=== PATIENT | female | born 1950 | race Caucasian/White ===

== ENCOUNTER 2019-02-10 21:47 | Emergency (ER) | payer MEDICARE, OTHER, SELFPAY ==
--- NOTE | 2019-02-10 22:33 | DI.RAD.S_ITS ---
PROCEDURE: XR CHEST 2V INDICATIONS: cough, short of breath TECHNIQUE: 2 views of the chest were acquired. COMPARISON: None. FINDINGS: Surgical changes and devices: None. Lungs and pleura: Lungs are clear. No pleural effusions or pneumothorax. Mediastinum: Mediastinal contours are normal. Heart size is normal. Bones and chest wall: Age-appropriate bony degenerative changes are seen. No suspicious bony abnormalities. Soft tissues appear unremarkable. IMPRESSION: Unremarkable imaging examination for age. Dictated by: Viktor Peter M.D. on 02/11/2019 at 7:48 Approved by: Viktor Peter M.D. on 02/11/2019 at 7:49
[2019-02-10 22:35] VITALS: BP 136/88; PULSE 103; RESP 18; TEMP 37; O2SAT 92; BMI 30.2
[2019-02-10 23:14] LABS: Influenza A and B by PCR Rapid Negative (Negative)
--- NOTE | 2019-02-11 00:39 | ED.SOB ---
HPI - SOB/Dyspnea General Chief Complaint: Shortness of Breath/Dyspnea Stated Complaint: COUGH SOB FEVER Time Seen by Provider: 02/11/19 00:37 Source: patient Mode of arrival: ambulatory Limitations: no limitations History of Present Illness Patient is a 68-year-old female who presents with cough and increasing shortness of breath. She has a pulse oximeter at home and it was 92 and a heart rate she said ?tachycardic.He has been having nonproductive cough. Worsening shortness of breath with exertion. He is extremely antsy to go home she has been here for 2 hours. She has not had any fever or chills. he has no chest pain she does have coughing spells with deep breathing. MD Complaint: shortness of breath and cough Related Data Home Medications Medication Instructions Recorded Confirmed acetaminophen 02/10/19 Allergies Allergy/AdvReac Type Severity Reaction Status Date / Time No Known Drug Allergies Allergy Verified 02/10/19 22:30 Review of Systems Review of Systems ROS Unobtainable: All systems reviewed & are unremarkable except as noted in HPI and below Constitutional Denies chills, Denies fever(s), Denies lethargy and Denies weakness Eyes Denies change in vision, Denies eye discharge, Denies irritation and Denies loss of vision ENT Ears, Nose, Mouth, and Throat: Denies change in voice, Denies neck pain and Denies sore throat Cardiovascular Denies chest pain, Denies irregular heart rhythm, Denies lightheadedness, Denies palpitations, Reports dyspnea, Reports dyspnea on exertion and Denies orthopnea Respiratory Reports cough, Reports dyspnea and Reports dyspnea on exertion Gastrointestinal Gastrointestinal: Denies abdominal pain, Denies change in bowel habits, Denies diarrhea, Denies nausea and Denies vomiting Genitourinary Denies hematuria, Denies flank pain, Denies urinary incontinence and Denies urinary urgency Musculoskeletal Denies neck pain Integumentary/Breasts Denies pruritus, Denies erythema, Denies rash and Denies wounds Neurologic Denies loss of vision and Denies weakness Endocrine Denies palpitations [facility] Medical History Patient denies significant medical history (Acute) Social History Smoking Status: Never smoker Social History Smoking Status: Never smoker Exam Initial Vital Signs Initial Vital Signs: Vital Signs Temperature 98.6 F 02/10/19 22:35 Pulse Rate 103 H 02/10/19 22:35 Respiratory Rate 18 02/10/19 22:35 Blood Pressure 136/88 02/10/19 22:35 Pulse Oximetry 92 02/10/19 22:35 GENERAL: Well-appearing, well-nourished and in no acute distress. HEENT: Head atraumatic,EOMI, pupils reactive, face symmetric, moist mucous membrane CARDIOVASCULAR: Regular rate and rhythm without murmurs, rubs or gallops. RESPIRATORY: Speaking in full sentences without any difficulty. She does have an obvious cough with deep inspiration. No wheezing rales or rhonchi ABDOMEN: Soft, nontender. Normoactive bowel sounds all 4 quadrants. No guarding or rebound. EXTREMITIES: Normal range of motion, no clubbing or edema. Neurovascularly intact NEUROLOGICAL: Alert and oriented x4.Normal gait and speech. Cranial nerves II through XII grossly intact. SKIN: Warm, dry, no laceration, no petechiae, no rashes or lesions. Course Orders Ordered: ED Orders 02/10/19 22:32 Influenza A and B by PCR Rapid Stat 02/10/19 22:33 XR chest 2V Stat Discontinued Medications Albuterol (Ventolin Hfa Prepack) [facility] Stop: 02/11/19 00:38 Last Admin: 02/11/19 00:51 Dose: 1 box Vital Signs - 8 hr 02/10/19 22:35 Temperature 98.6 F Pulse Rate 103 H Respiratory Rate 18 Blood Pressure 136/88 Pulse Oximetry 92 MDM - SOB/Dyspnea Lab Data Lab Results 02/10/19 Range/Units 22:32 Influenza A & B (PCR) Negative (Negative) Imaging Data Chest x-ray: Attestation: I personally reviewed and interpreted this imaging study as follows: My impression: No acute cardiopulmonary process MDM Narrative Medical decision making narrative: Patient is requesting to leave. She just wanted to results of influenza and x-ray. She does have obvious cough and reactive airway like symptoms. She is given albuterol and spacer Discharge Plan Departure Patient Disposition: Home Clinical Impression: Reactive airway disease Qualifiers: Asthma severity: mild Asthma persistence: intermittent Asthma complication type: uncomplicated Qualified Code(s): J45.20 - Mild intermittent asthma, uncomplicated Discharge Date/Time: 02/11/19 01:07 Interventions: ED Discharge Assessment Last Done: 02/11/19 01:06 Instructions: DI for Acute Bronchitis Activity Restrictions/Additional Instructions: *You have been diagnosed with reactive airway/bronchitis *What to do: At this time there is no indication for any antibiotics. However he may need further workup if your symptoms continue to worsen *Continue to take medications as directed Albuterol 1-2 puffs with spacer every 4 hours if needed for coughing spells or shortness of breath *Follow up with your primary care provider in 2-3 days *Return to ER if you should have increasing shortness of breath, chest pain, passing or any new, worsening or concerning symptoms Prescriptions: No Action acetaminophen 500 mg Tablet RF: 0 Referrals: Luis Ramachandran MD [Physician] -
[2019-02-11] MEDS: ALBUTEROL HFA PREPACK 1 BOX MISC (00:51)
--- NOTE | 2019-02-11 01:06 | PC.NURSE ---
MDI spacer teaching completed by Hollis HWANG
== END 2019-02-11 01:07 | disposition home or self-care (01) ==
PROVIDERS: Emergency Provider Emergency Medicine
DX: J45.20 Mild intermittent asthma, uncomplicated (principal)
CPT/HCPCS: 71046; 87400; 99282; 99283

== ENCOUNTER 2020-06-28 19:27 | Emergency (ER) | payer MEDICARE, OTHER, SELFPAY ==
[2020-06-28] VITALS (11 sets, daily range): BP systolic 117–177; BP diastolic 56–93; PULSE 98–108; RESP 18–28; TEMP 36.7–38.2; O2SAT 95–98; BMI 27.8
--- NOTE | 2020-06-28 19:36 | DI.RAD.S_ITS ---
PROCEDURE: XR TIBIA FIBULA RT 2V INDICATIONS: fall/injury TECHNIQUE: 2 views of the tibia and fibula were acquired. COMPARISON: None. FINDINGS: Bones: Depressed, comminuted lateral tibial plateau fracture. Comminuted fibular head fracture. Soft tissues: No suspicious soft tissue calcifications or masses. IMPRESSION: Lateral tibial plateau fracture and fibular head fracture. Dictated by: Lupe Denney MD, PhD on 06/28/2020 at 20:06 Approved by: Lupe Denney MD, PhD on 06/28/2020 at 20:07
--- NOTE | 2020-06-28 19:43 | ED.FALL ---
HPI - Fall General Chief Complaint: Trauma Stated Complaint: Fall, ladder Time Seen by Provider: 06/28/20 19:35 Source: patient, family and EMS Mode of arrival: EMS Limitations: no limitations History of Present Illness HPI Narrative: Patient brought here by ambulance from home. Fall off a ladder. Hitting her upper outer left leg/knee against a rock. Left ribs hit the ground. No loss of consciousness. Denies any head neck back pain. No abdominal pain no chest pain. Other than the ribs. No pelvis hips pain. Complains of left medial foot pain. Otherwise right lower extremity no complaints. Received total of 20 mg of ketamine by EMS ... 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 History of orthopedic procedures at [facility]. Right lower leg. Shoe sock removed on left side. complaint: fall Related Data Home Medications Medication Instructions Recorded Confirmed No Known Home Medications 06/28/20 06/28/20 Allergies Allergy/AdvReac Type Severity Reaction Status Date / Time No Known Drug Allergies Allergy Verified 02/10/19 22:30 Review of Systems Review of Systems Narrative: GENERAL: Denies chills, fatigue, malaise, fever, sweats. HEENT: dizziness. RESPIRATORY: Denies dyspnea, cough, wheezing, hemoptysis, sputum. CARDIOVASCULAR: Denies chest pain, palpitations, orthopnea, edema, GASTROINTESTINAL: Denies nausea, vomiting, abdominal pain, : Denies incontinence MUSCULOSKELETAL: Complains of joint pain, or bony pain SKIN: No skin injury NEUROLOGIC: Denies weakness, headache, numbness, change in speech, confusion, seizures, incoordination. PSYCHIATRIC: No concerning psychosocial issues. ROS Unobtainable: All systems reviewed & are unremarkable except as noted in HPI and below Patient History Medical History Patient denies significant medical history (Acute) Social History Smoking Status: Never smoker Smoking Status: Never smoker alcohol intake frequency: 0-2 drinks per day Substance Use Type: does not use Exam Narrative Exam Narrative: GENERAL: patient appears stated age. Well-nourished, well-developed patient, in no distress, not toxic, shirt removed HEAD: Atraumatic. Normocephalic. EYES: Pupils equal round and reactive. Extraocular motions intact. No scleral icterus. No injection or drainage. ENT: Nose without bleeding, purulent drainage. Airway patent. NECK: Trachea midline. Non tender no midline tenderness or step-off CARDIOVASCULAR: Regular rate and rhythm without murmurs, gallops, or rubs. Tenderness to the anterior lower left ribs no crepitus, no flail. No bruising RESPIRATORY: Clear to auscultation. Breath sounds equal bilaterally. No wheezes, rales, or rhonchi. GASTROINTESTINAL: Abdomen soft, non-tender, nondistended. EXTREMITIES: Examination left lower extremity nontender pelvis and hip. Limited range of motion at the left knee due to pain. Skin is intact. Strong pedal pulse light touch intact to foot and toes. Mild tenderness to the mid medial foot. BACK: Nontender without deformity or crepitance. No flank tenderness. No midline tenderness or step-off NEURO: AOx4. SKIN: No rash or erythema of visible areas PSYCH: Not anxious, is cooperative Initial Vital Signs Initial Vital Signs: Vital Signs Temperature 100.7 F H 06/28/20 19:30 Pulse Rate 108 H 06/28/20 19:30 Respiratory Rate 28 H 06/28/20 19:30 Blood Pressure 177/93 H 06/28/20 19:30 Pulse Oximetry 98 06/28/20 19:30 Course Course Course Narrative: Patient and understand we need to transfer to [facility] Orders Ordered: ED Orders 06/28/20 19:36 XR tibia fibula LT 2V Stat 06/28/20 19:42 XR chest 1V Stat XR foot LT 2V Stat 06/28/20 19:50 Complete Blood Count AUTO DIFF Stat Comprehensive Metabolic Panel Stat 06/28/20 20:20 COVID19 -ED/INPAT/OR/L&D Stat Discontinued Medications Fentanyl (Sublimaze) 50 mcg IV NOW ONE Stop: 06/28/20 19:43 Last Admin: 06/28/20 19:45 Dose: 50 mcg Documented by: EDENILSON Hydromorphone HCl (Dilaudid) 1 mg IV NOW ONE Stop: 06/28/20 22:27 Last Admin: 06/28/20 22:33 Dose: 1 mg Documented by: HUYEN Hydromorphone HCl (Dilaudid) 1 mg IV NOW ONE Stop: 06/28/20 23:31 Last Admin: 06/29/20 00:09 Dose: 0.5 mg Documented by: HUYEN Lorazepam (Ativan) 0.5 mg IV NOW ONE Stop: 06/29/20 00:23 Last Admin: 06/29/20 00:25 Dose: 0.5 mg Documented by: HUYEN Morphine Sulfate (Morphine) 4 mg IV NOW ONE Stop: 06/28/20 21:01 Last Admin: 06/28/20 21:07 Dose: 4 mg Documented by: HUYEN Ondansetron HCl (Zofran) 4 mg IV NOW ONE Stop: 06/28/20 23:33 Last Admin: 06/28/20 23:50 Dose: 4 mg Documented by: HUYEN Reevaluation(s) Reevaluation #1: Pain control at this time. Patient and understand transfer indication Time: 23:20 Consultations Consultation #1: s/w dr dozier, our ortho...pt needs txr Time: 20:14 Consultation #2: s/w [facility] orthoDECLAN with dr smith, unable to accept patient Time: 22:15 Consultation #3: Spoke with [facility]oped[facility] dr angela, he will see patient in their emergency department, place patient in knee immobilizer Time: 11:17 Vital Signs Vital signs: Vital Signs - 8 hr 06/28/20 19:30 06/28/20 20:12 06/28/20 21:11 Temperature 100.7 F H Pulse Rate 108 H 101 H 108 H Respiratory Rate 28 H 18 Blood Pressure 177/93 H Pulse Oximetry 98 95 96 06/28/20 21:12 06/28/20 21:30 06/28/20 22:00 Temperature Pulse Rate 105 H 99 H Respiratory Rate Blood Pressure 140/71 139/65 129/62 Pulse Oximetry 96 95 95 06/28/20 22:30 06/28/20 23:00 06/28/20 23:24 Temperature Pulse Rate 103 H 98 H Respiratory Rate Blood Pressure 141/70 H 117/56 L Pulse Oximetry 95 95 97 06/28/20 23:30 06/28/20 23:44 06/29/20 00:00 Temperature 98.1 F Pulse Rate Respiratory Rate Blood Pressure 117/57 L 103/56 L Pulse Oximetry 06/29/20 00:07 06/29/20 00:37 Temperature 98.1 F Pulse Rate 100 H 98 H Respiratory Rate 18 Blood Pressure 128/56 L Pulse Oximetry 98 92 MDM - Fall Differential Diagnosis Differential diagnosis: Likely other (Rib fracture/foot fracture/knee fracture) Lab Data Attestation: I reviewed the patient's lab results. Result diagrams: 06/28/20 19:50 06/28/20 19:50 Labs: Lab Results 06/28/20 06/28/20 06/28/20 Range/Units 19:50 19:50 20:20 WBC 10.2 (4.5-11.0) X10^3/uL RBC 4.41 (4.0-5.2) X10^6/uL Hgb 13.1 (12.0-16.0) g/dL Hct 38.0 (36-46) % MCV 86.3 (80-100) fL MCH 29.6 (26-34) PG MCHC 34.3 (30-36) % RDW 13.2 (11.6-14.8) % Plt Count 346 (150-400) X10^3/uL Neut % (Auto) 67.3 (50-75) % Lymph % (Auto) 25.0 (25-40) % [place] % (Auto) 5.9 (3-14) % Eos % (Auto) 1.1 L (2-4) % Baso % (Auto) 0.7 (0-2) % Neut # (Auto) 6800 (2264-5607) /uL Lymph # (Auto) 2500 (7812-1910) /uL [place] # (Auto) 600 (0-900) /uL Eos # (Auto) 100 (0-450) /uL Baso # (Auto) 100 (0-100) /uL Sodium 140 (137-145) mmol/L Potassium 3.7 (3.4-5.1) mmol/L Chloride 103 (98-107) mmol/L Carbon Dioxide 27 (22-32) mmol/L BUN 19 H (7-17) mg/dL Creatinine 1.18 H (0.52-1.04) mg/dL Estimated GFR 45.6 L (>60) mL/min BUN/Creatinine Ratio 16.1 (6-22) Glucose 112 H (80-110) mg/dL Calcium 9.3 (8.4-10.2) mg/dL Total Bilirubin 0.8 (0.2-1.3) mg/dL AST 35 (14-36) IU/L ALT 44 H (<35) IU/L Alkaline Phosphatase 61 (38-126) U/L Total Protein 7.7 (6.3-8.2) g/dL Albumin 4.3 (3.5-5.0) g/dL Globulin 3.4 (1.7-4.1) g/dL Albumin/Globulin Ratio 1.3 (1.0-2.8) COVID-19 PCR Negative (Negative) Imaging Data Chest x-ray: Radiologist's Impression: [address] [address] XRay Report Signed Patient: Duong MartinR#: [id number] : 2Acct:[id number] Age/Sex: 69 / FDate of Service: 06/28/20 Loc: ED Accession Number: [id number] Procedure: XR chest 1V Ordering Provider: Dejon Loyd MD PROCEDURE: XR CHEST 1V INDICATIONS: Fall/pain left side TECHNIQUE: One view of the chest was acquired. COMPARISON: None. FINDINGS: Surgical changes and devices: None. Lungs and pleura: Lungs are clear. No pleural effusions or pneumothorax. Mediastinum: Mediastinal contours appear normal. Heart size is normal. Bones and chest wall: No suspicious bony lesions. Overlying soft tissues appear unremarkable. IMPRESSION: No acute cardiopulmonary disease process. Dictated by: Lupe Denney MD, PhD on 06/28/2020 at 19:55 Approved by: Lupe Denney MD, PhD on 06/28/2020 at 19:55 X-ray left tib-fib: Radiologist's Impression: [address] [address] XRay Report Signed Patient: Duong MartinR#: [id number] : 2Acct:[id number] Age/Sex: 69 / FDate of Service: 06/28/20 Loc: ED Accession Number: [id number] Procedure: XR tibia fibula LT 2V Ordering Provider: Dejon Loyd MD PROCEDURE: XR TIBIA FIBULA RT 2V INDICATIONS: fall/injury TECHNIQUE: 2 views of the tibia and fibula were acquired. COMPARISON: None. FINDINGS: Bones: Depressed, comminuted lateral tibial plateau fracture. Comminuted fibular head fracture. Soft tissues: No suspicious soft tissue calcifications or masses. IMPRESSION: Lateral tibial plateau fracture and fibular head fracture. Dictated by: Lupe Denney MD, PhD on 06/28/2020 at 20:06 Approved by: Lupe Denney MD, PhD on 06/28/2020 at 20:07 X-ray left foot: Radiologist's Impression: [place] [address] XRay Report Signed Patient: Bijal Martin#: [id number] : 2Acct:[id number] Age/Sex: 69 / FDate of Service: 06/28/20 Loc: ED Accession Number: [id number] Procedure: XR foot LT 2V Ordering Provider: Dejon Loyd MD PROCEDURE: XR FOOT LT 2V INDICATIONS: Fall/pain left side TECHNIQUE: 2 views of the foot were acquired. COMPARISON: None. FINDINGS: Bones: No fractures or dislocations. No suspicious bony lesions. Dorsal calcaneal bone spur. Soft tissues: No tibiotalar joint effusion. Achilles tendon appears normal. IMPRESSION: No fracture. No osseous lesion. If symptoms and/or clinical suspicion for pathology persists, further assessment with repeat radiographs (7-10 days) or advanced imaging (e.g. CT, MRI or bone scan) may be helpful. Dictated by: Lupe Denney MD, PhD on 06/28/2020 at 20:05 Approved by: Lupe Denney MD, PhD on 06/28/2020 at 20:06 [facility] Narrative Medical decision making narrative: Will need to transfer patient as requested by Orthopedics. Also we do not have CT scan here. Patient and understand. They agree with transfer Discharge Plan Departure Patient Disposition: [facility] Clinical Impression: Closed fracture of tibial plateau Qualifiers: Encounter type: initial encounter Laterality: left Qualified Code(s): S82.142A - Displaced bicondylar fracture of left tibia, initial encounter for closed fracture Discharge Date/Time: 06/29/20 00:39 Prescriptions: No Action No Known Home Medications RF: 0
[2020-06-28] MEDS: fentaNYL 100 MCG/2 ML INJ 50 MCG IV (19:45)
[2020-06-28 19:58] LABS: Add Manual Diff / Slide Review NO; Basophils Absolute Auto 100 /uL (0-100); Basophils Percent Auto 0.7 % (0-2); Eosinophils Absolute Auto 100 /uL (0-450); Eosinophils Percent Auto 1.1 % (2-4); Hemoglobin 13.1 g/dL (12.0-16.0); Lymphocytes Absolute Auto 2500 /uL (1100-4500); Mean Corpuscular HGB Conc 34.3 % (30-36); Mean Corpuscular Hemoglobin 29.6 PG (26-34); Mean Corpuscular Volume 86.3 fL (80-100); Monocytes Absolute Auto 600 /uL (0-900); Monocytes Percent Auto 5.9 % (3-14); Neutrophils Absolute Auto 6800 /uL (1500-7000); Neutrophils Percent Auto 67.3 % (50-75); Platelet Count 346 X10^3/uL (150-400); Red Blood Cell Count 4.41 X10^6/uL (4.0-5.2); Red Cell Distribution Width 13.2 % (11.6-14.8); White Blood Cell Count 10.2 X10^3/uL (4.5-11.0)
[2020-06-28 20:10] LABS: Alanine Aminotransferase 44 IU/L (<35); Albumin 4.3 g/dL (3.5-5.0); Albumin Globulin Ratio 1.3 (1.0-2.8); Alkaline Phosphatase 61 U/L (38-126); Aspartate Aminotransferase 35 IU/L (14-36); BUN Creatinine Ratio 16.1 (6-22); Bilirubin Total 0.8 mg/dL (0.2-1.3); Blood Urea Nitrogen 19 mg/dL (7-17); Calcium 9.3 mg/dL (8.4-10.2); Carbon Dioxide 27 mmol/L (22-32); Chloride 103 mmol/L (98-107); Estimated Glomerular Filt Rate 45.6 mL/min (>60); Globulin 3.4 g/dL (1.7-4.1); Glucose 112 mg/dL (80-110); HEMOLYSIS < 15 (0-50); Potassium 3.7 mmol/L (3.4-5.1); Sodium 140 mmol/L (137-145); Total Protein 7.7 g/dL (6.3-8.2)
[2020-06-28 20:44] LABS: COVID19 -Nasal RAPID Negative (Negative)
[2020-06-28] MEDS: MORPHINE 4 MG/ML INJ IV (21:07)
[2020-06-28] MEDS: HYDROMORPHONE 1 MG INJ IV (22:33)
[2020-06-28] MEDS: ONDANSETRON 4 MG/2 ML INJ IV (23:50)
[2020-06-29] VITALS: BP 103/56
[2020-06-29 00:07] VITALS: PULSE 100; O2SAT 98
[2020-06-29] MEDS: HYDROMORPHONE 1 MG INJ IV (00:09)
[2020-06-29] MEDS: LORazepam 2 MG/ML INJ 0.5 MG IV (00:25)
--- NOTE | 2020-06-29 00:30 | PC.NURSE ---
Gave patient 0.5 mg dilaudid, Okayd by patient and provider.
[2020-06-29 00:37] VITALS: BP 128/56; PULSE 98; RESP 18; TEMP 36.7; O2SAT 92
== END 2020-06-29 00:39 | disposition short-term general hospital (02) ==
PROVIDERS: Emergency Provider Emergency Medicine
DX: S82.142A Displaced bicondylar fracture of left tibia, initial encounter for closed fracture (principal); W11.XXXA Fall on and from ladder, initial encounter
CPT/HCPCS: 71045; 73590; 73620; 80053; 85025; 87635; 96374; 96375; 96376; 99284; J1170; J2060; J2270; J2405; J3010

== ENCOUNTER → 2020-07-09 19:08 | Outpatient (ROUT) | payer MEDICARE, OTHER, SELFPAY ==
[2020-07-09 19:34] LABS: Add Manual Diff / Slide Review NO; Basophils Absolute Auto 100 /uL (0-100); Basophils Percent Auto 1.2 % (0-2); Eosinophils Absolute Auto 200 /uL (0-450); Eosinophils Percent Auto 2.6 % (2-4); Hematocrit 30.4 % (36-46); Hemoglobin 10.3 g/dL (12.0-16.0); Lymphocytes Absolute Auto 2000 /uL (1100-4500); Lymphocytes Percent Auto 23.1 % (25-40); Mean Corpuscular HGB Conc 33.9 % (30-36); Mean Corpuscular Hemoglobin 29.7 PG (26-34); Mean Corpuscular Volume 87.7 fL (80-100); Monocytes Absolute Auto 500 /uL (0-900); Monocytes Percent Auto 5.4 % (3-14); Neutrophils Absolute Auto 5700 /uL (1500-7000); Neutrophils Percent Auto 67.7 % (50-75); Platelet Count 717 X10^3/uL (150-400); Red Blood Cell Count 3.47 X10^6/uL (4.0-5.2); White Blood Cell Count 8.5 X10^3/uL (4.5-11.0)
== END ==
PROVIDERS: Visit Provider Physician Assistant
DX: D64.9 Anemia, unspecified (principal)
CPT/HCPCS: 85025

== ENCOUNTER → 2020-07-18 15:53 | Outpatient (ROUT) | payer MEDICARE, OTHER, SELFPAY ==
[2020-07-18 17:14] LABS: Add Manual Diff / Slide Review NO; Basophils Absolute Auto 100 /uL (0-100); Basophils Percent Auto 1.2 % (0-2); Eosinophils Absolute Auto 200 /uL (0-450); Eosinophils Percent Auto 2.4 % (2-4); Hematocrit 31.6 % (36-46); Hemoglobin 10.8 g/dL (12.0-16.0); Lymphocytes Absolute Auto 2500 /uL (1100-4500); Lymphocytes Percent Auto 34.3 % (25-40); Mean Corpuscular HGB Conc 34.1 % (30-36); Mean Corpuscular Hemoglobin 29.9 PG (26-34); Mean Corpuscular Volume 87.7 fL (80-100); Monocytes Absolute Auto 500 /uL (0-900); Monocytes Percent Auto 6.9 % (3-14); Neutrophils Absolute Auto 4000 /uL (1500-7000); Neutrophils Percent Auto 55.2 % (50-75); Platelet Count 683 X10^3/uL (150-400); Red Cell Distribution Width 13.8 % (11.6-14.8); White Blood Cell Count 7.2 X10^3/uL (4.5-11.0)
== END ==
PROVIDERS: Visit Provider Physician Assistant
DX: D64.9 Anemia, unspecified (principal)
CPT/HCPCS: 85025

== ENCOUNTER → 2020-08-15 15:15 | Outpatient (ROUT) | payer MEDICARE, OTHER, SELFPAY ==
[2020-08-15 15:36] LABS: Add Manual Diff / Slide Review NO; Basophils Absolute Auto 0 /uL (0-100); Basophils Percent Auto 0.5 % (0-2); Eosinophils Absolute Auto 100 /uL (0-450); Eosinophils Percent Auto 1.1 % (2-4); Hematocrit 37.3 % (36-46); Hemoglobin 12.5 g/dL (12.0-16.0); Lymphocytes Absolute Auto 2100 /uL (1100-4500); Lymphocytes Percent Auto 32.6 % (25-40); Mean Corpuscular HGB Conc 33.4 % (30-36); Mean Corpuscular Hemoglobin 29.2 PG (26-34); Mean Corpuscular Volume 87.5 fL (80-100); Monocytes Absolute Auto 400 /uL (0-900); Monocytes Percent Auto 6.6 % (3-14); Neutrophils Absolute Auto 3800 /uL (1500-7000); Neutrophils Percent Auto 59.2 % (50-75); Platelet Count 396 X10^3/uL (150-400); Red Blood Cell Count 4.27 X10^6/uL (4.0-5.2); Red Cell Distribution Width 13.7 % (11.6-14.8); White Blood Cell Count 6.5 X10^3/uL (4.5-11.0)
[2020-08-15 15:39] LABS: HEMOLYSIS < 15 (0-50); Iron 60 ug/dL (37-170)
[2020-08-15 15:52] LABS: Percent Iron Saturation 19 % (15-50); Total Iron Binding Capacity 318 ug/dL (265-497); Transferrin 250 mg/dL (206-381)
[2020-08-15 16:05] LABS: Alanine Aminotransferase 33 IU/L (<35); Albumin 4.2 g/dL (3.5-5.0); Albumin Globulin Ratio 1.2 (1.0-2.8); Alkaline Phosphatase 76 U/L (38-126); Aspartate Aminotransferase 25 IU/L (14-36); BUN Creatinine Ratio 22.6 (6-22); Bilirubin Total 0.8 mg/dL (0.2-1.3); Blood Urea Nitrogen 19 mg/dL (7-17); Calcium 10.2 mg/dL (8.4-10.2); Carbon Dioxide 27 mmol/L (22-32); Chloride 103 mmol/L (98-107); Cholesterol 233 mg/dL (140-199); Estimated Glomerular Filt Rate > 60.0 mL/min (>60); Globulin 3.4 g/dL (1.7-4.1); Glucose 95 mg/dL (80-110); HDL Cholesterol 52 mg/dL (40-60); HEMOLYSIS < 15 (0-50); LDL Cholesterol Calculated 132 mg/dL (<100); Potassium 4.8 mmol/L (3.4-5.1); Sodium 136 mmol/L (137-145); Total Protein 7.6 g/dL (6.3-8.2); Triglycerides 245 mg/dL (35-150)
[2020-08-15 16:39] LABS: Ferritin 106 ng/mL (11-264)
== END ==
PROVIDERS: Visit Provider Internal Medicine
DX: E78.2 Mixed hyperlipidemia (principal); D64.9 Anemia, unspecified
CPT/HCPCS: 80053; 80061; 82728; 83540; 83550; 85025

== ENCOUNTER → 2020-10-25 09:53 | Outpatient (CLI) | payer MEDICARE, OTHER, SELFPAY ==
--- NOTE | 2020-10-25 | DI.RAD.S_ITS ---
PROCEDURE: XR FOOT LT MIN 3V INDICATIONS: closed bi fracture of lt tibial plateua TECHNIQUE: 3 views of the foot were acquired. COMPARISON: [facility], CR, XR FOOT LT 2V, 06/28/2020, 19:24. FINDINGS: Bones: No fractures or dislocations. No suspicious bony lesions. 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 Mild degenerative osteoarthritis at the 1st interphalangeal joint. Soft tissues: No tibiotalar joint effusion. Achilles tendon appears normal. IMPRESSION: Osteoarthritic change, no trauma found. Please note that if unusual symptoms persist follow-up advanced imaging such as MRI could be obtained for most accurate early detection of a hidden fracture. Dictated by: Varun Douglas M.D. on 10/25/2020 at 11:07 Approved by: Varun Douglas M.D. on 10/25/2020 at 11:08
--- NOTE | 2020-10-25 | DI.RAD.S_ITS ---
PROCEDURE: XR ANKLE LT MIN 3V INDICATIONS: closed bi fracture of lt tibial platea TECHNIQUE: 3 views of the ankle were acquired. COMPARISON: [facility], CR, XR FOOT LT MIN 3V, 10/25/2020, 10:04. [facility], CR, XR FOOT LT 2V, 06/28/2020, 19:24. [facility], CR, XR TIBIA FIBULA LT 2V, 06/28/2020, 19:24. FINDINGS: Bones: No fractures or dislocations. There is a rounded sharp sharply demarcated defect within the medial aspect of the distal tibial diaphysis, at approximately the junction between the middle and lower thirds, not previously present in June of 2020. No similar lucencies are seen above or below or through the lateral cortex. This measures approximately 5 mm in diameter, and could represent sequela of penetrating wound or focal neoplastic penetration and even infection. Ankle mortise is normally aligned. No suspicious bony lesions. Soft tissues: No tibiotalar joint effusion. Achilles tendon appears normal. IMPRESSION: A 5 mm lucent sharply demarcated defect is seen within the cortex of the tibial diaphysis distally, not previously present. As discussed above several etiologies could explain this finding but given the risk of infection or neoplasm as the underlying cause contrast-enhanced MR scanning through this area is recommended. The patient carries a history of prior trauma to the tibial plateau on the left, with plain film imaging that included this portion of the left tibia at time of that trauma. Please correlate clinically to determine whether any prior fixation device had been utilized penetrating the cortex in this area. Dictated by: Varun Douglas M.D. on 10/25/2020 at 11:15 Approved by: Varun Douglas M.D. on 10/25/2020 at 12:47
== END ==
PROVIDERS: PCP Internal Medicine; Referring Provider Orthopaedic Surgery; Visit Provider Orthopaedic Surgery
DX: S82.142A Displaced bicondylar fracture of left tibia, initial encounter for closed fracture (principal)
CPT/HCPCS: 73610; 73630

== ENCOUNTER → 2021-03-18 10:15 | Outpatient (CLI) | payer MEDICARE, OTHER, SELFPAY | PROVIDERS: PCP Internal Medicine; Referring Provider Internal Medicine; Visit Provider Internal Medicine | DX: Z78.0 Asymptomatic menopausal state (principal); M81.0 Age-related osteoporosis without current pathological fracture; Z82.62 Family history of osteoporosis | CPT/HCPCS: 77080 ==

== ENCOUNTER → 2021-08-14 09:11 | Outpatient (CLI) | payer MEDICARE, OTHER, SELFPAY ==
--- NOTE | 2021-08-14 | DI.RAD.S_ITS ---
PROCEDURE: XR HIP W PEL IF DONE RT 2V INDICATIONS: chronic hip pain TECHNIQUE: 2 views of the hip were acquired. COMPARISON: None. FINDINGS: Bones: No fractures or dislocations. No suspicious bony lesions. The visualized pelvic ring appears intact. Mild joint narrowing with periarticular osteophyte formation of the right hip joint. Soft tissues: No suspicious soft tissue calcifications or masses. Midline pelvic surgical clips. IMPRESSION: Mild right hip joint degeneration. Dictated by: Hollis Moseley [facility] Interpreted: Tim Perez MD on 08/14/2021 at 9:36 Transcribed by: TUCKER on 08/14/2021 at 9:36 Approved by: Tim Perez M.D. on 08/14/2021 at 11:08
== END ==
PROVIDERS: PCP Internal Medicine; Referring Provider Internal Medicine; Visit Provider Internal Medicine
DX: M16.11 Unilateral primary osteoarthritis, right hip (principal); M81.0 Age-related osteoporosis without current pathological fracture
CPT/HCPCS: 73502

== ENCOUNTER → 2022-03-09 12:52 | Outpatient (CLI) | payer MEDICARE, OTHER, SELFPAY ==
[2022-03-09 15:21] LABS: Cholesterol 158 mg/dL (140-199); HDL Cholesterol 71 mg/dL (40-60); LDL Cholesterol Calculated 63 mg/dL (<100); Triglycerides 120 mg/dL (35-150)
== END ==
PROVIDERS: PCP Internal Medicine; Referring Provider Internal Medicine; Visit Provider Internal Medicine
DX: E78.2 Mixed hyperlipidemia (principal)
CPT/HCPCS: 36415; 80061

== ENCOUNTER 2022-08-27 11:11 | Emergency (ER) | payer MEDICARE, OTHER, SELFPAY ==
[2022-08-27] VITALS (10 sets, daily range): BP systolic 114–187; BP diastolic 58–82; PULSE 65–93; RESP 18; TEMP 36.7; O2SAT 92–97
--- NOTE | 2022-08-27 11:27 | DI.RAD.S_ITS ---
PROCEDURE: XR ANKLE LT MIN 3V INDICATIONS: L ankle injury after fall TECHNIQUE: 3 views of the ankle were acquired. COMPARISON: [facility], CR, XR ANKLE LT MIN 3V, 10/25/2020, 10:04. FINDINGS: Bones: There is a probably displaced comminuted fracture of the distal fibula, seen just below the level of the syndesmosis. There is also a prominently displaced medial malleolar fracture. On the lateral view, there is believed to be a mildly displaced posterior malleolar fracture, yet this is not well seen. A prominent Achilles insertion enthesophyte can be seen. Soft tissues: Soft tissue swelling is seen. IMPRESSION: Brightly displaced fractures seen of the medial malleolus and the lateral malleolus. Likely posterior malleolar fracture also present. If it would be helpful for clinical management decision making in this patient with this given history, please consider a dedicated ankle CT for further evaluation. Dictated by: Viktor Peter M.D. on 08/27/2022 at 10:53 Approved by: Viktor Peter M.D. on 08/27/2022 at 10:55
--- NOTE | 2022-08-27 11:28 | ED.FALL ---
HPI - Fall General Chief Complaint: Fall Stated Complaint: GLF Time Seen by Provider: 08/27/22 11:24 Source: patient and EMS Mode of arrival: EMS History of Present Illness HPI Narrative: 71-year-old female. Not on anticoagulation. Here for evaluation of a left ankle injury. She was walking. She tripped over to dogs. She twist her left ankle. Has deformity. Is unable to ambulate since then. No other injuries from the event. Not on anticoagulation. Arrived by EMS in a splint. Related Data Home Medications Medication Instructions Recorded Confirmed acetaminophen 500 mg capsule 500 mg PO DAILY PRN 03/09/22 03/09/22 calcium 650 mg-vitamin D3 12.5 1 tab PO DAILY 03/09/22 03/09/22 mcg-vitamin K 40 mcg chewable tablet ibuprofen 200 mg capsule 200 mg PO DAILY PRN 03/09/22 03/09/22 rosuvastatin 10 mg tablet 10 mg PO DAILY 03/09/22 03/09/22 zoledronic acid 5 mg/100 mL in 1 ea IV .Yearly 03/09/22 03/09/22 mannitol 5 %-water intravenous piggybck (Reclast) Previous Rx's Medication Instructions Recorded apixaban 5 mg tablet (Eliquis) 5 mg PO DIRECTED #70 tabs 08/27/22 hydrocodone 5 mg-acetaminophen 325 1 tab PO Q4-6H PRN pain #20 tabs 08/27/22 mg tablet ondansetron 4 mg disintegrating 4 mg PO Q6H PRN nausea and 08/27/22 tablet vomiting #14 tabs Allergies Allergy/AdvReac Type Severity Reaction Status Date / Time No Known Drug Allergies Allergy Verified 08/27/22 11:27 Review of Systems Constitutional Constitutional: Reports system reviewed and no additional complaints, except as documented Musculoskeletal Musculoskeletal: Reports system reviewed and no additional complaints, except as documented Integumentary/Breasts Skin/Breast: Reports system reviewed and no additional complaints, except as documented Neurologic Neurologic: Reports system reviewed and no additional complaints, except as documented Hematologic/Lymphatic On Anticoagulants: No Patient History Medical History Age-related osteoporosis without current pathological fracture Deep vein thrombosis (~06/2019) Fractures Gastric reflux Mixed hyperlipidemia Obesity (BMI 30.0-34.9) Patient denies significant medical history Primary osteoarthritis involving multiple joints Pulmonary embolism (~06/2019) Surgical History Anesthesia History of appendectomy History of bilateral breast reduction surgery History of total abdominal hysterectomy and bilateral salpingo-oophorectomy Tibia/fibula fracture Tibial plateau fracture, left Family History Father Diabetes mellitus History of heart disease Hypertension Social History Smoking Status: Former smoker Smoking Status: Former smoker alcohol intake frequency: 0-2 drinks per day Alcohol type: wine Substance Use Type: does not use Exam Initial Vital Signs Initial Vital Signs: Vital Signs Temperature 98.1 F 08/27/22 11:21 Pulse Rate 82 08/27/22 11:21 Respiratory Rate 18 08/27/22 11:21 Blood Pressure 158/76 H 08/27/22 11:21 Pulse Oximetry 92 08/27/22 11:21 Oxygen Delivery Method 08/27/22 11:21 Cardio Pulses: dorsalis pedis present on the left Skin General: no rashes or lesions noted Neuro General: patient alert and patient awake Sensory Exam: no sensory deficits noted Extrem Other: No left knee tenderness. Has swelling and deformity to left ankle. Right lower extremity bilateral upper extremities unremarkable. Psych Appearance: grossly normal and well kempt Procedures Orthopedic Fracture Reduction Fracture #1: Time Out Performed: Yes Side: left Fracture Reduction Location: tibia and fibula Technique: direct manipulation Post Reduction X-rays Demonstrate: acceptable reduction Post-reduction neuro exam: intact Post-reduction vascular exam: intact Splint Applied: Yes Patient Tolerated Procedure: Well Orthopedic Splinting/Casting Injury #1: Side: left Lower Extremity Injury Location: ankle Lower Extremity Immobilizer: posterior splint and stirrup splint Post splinting neuro exam: intact Post splinting vascular exam: intact Placed by: Provider Course Orders Ordered: ED Orders 08/27/22 11:27 XR ankle LT min 3V Stat 08/27/22 13:06 XR ankle LT min 3V Stat Discontinued Medications Hydromorphone HCl (Hydromorphone 1 Mg Inj) 1 mg IV NOW ONE Stop: 08/27/22 11:47 Last Admin: 08/27/22 11:55 Dose: 1 mg Documented By: AT Ondansetron HCl (Ondansetron 4 Mg/2 Ml Inj) 4 mg IV NOW ONE Stop: 08/27/22 13:25 Last Admin: 08/27/22 13:29 Dose: 4 mg Documented By: TC Vital Signs Vital signs: Vital Signs - 8 hr 08/27/22 11:21 08/27/22 11:27 08/27/22 11:30 Temperature 98.1 F Pulse Rate 82 85 Respiratory Rate 18 Blood Pressure 158/76 H 145/72 H Pulse Oximetry 92 95 Oxygen Delivery Method Room Air 08/27/22 11:30 08/27/22 12:00 08/27/22 12:00 Temperature Pulse Rate 74 86 Respiratory Rate Blood Pressure 164/77 H Pulse Oximetry 93 94 Oxygen Delivery Method Room Air 08/27/22 12:30 08/27/22 12:30 08/27/22 13:00 Temperature Pulse Rate 65 Respiratory Rate Blood Pressure 129/60 187/82 H Pulse Oximetry 94 Oxygen Delivery Method 08/27/22 13:00 08/27/22 13:23 08/27/22 13:31 Temperature Pulse Rate 93 H 88 Respiratory Rate Blood Pressure 122/62 Pulse Oximetry 96 97 Oxygen Delivery Method Room Air MDM - Fall Imaging Data Extremity x-ray #1: Radiologist's Impression: [address] [address] XRay Report Signed Patient: Guanakito Rosas MR#: [id number] : 1950 Acct:[id number] Age/Sex: 71 / F Date of Service: 08/27/22 Loc: ED Accession Number: [id number] ?? Procedure: XR ankle LT min 3V Ordering Provider: Param Cardenas D.O. PROCEDURE:? XR ANKLE LT MIN 3V ? INDICATIONS:? L ankle injury after fall ? TECHNIQUE:? 3 views of the ankle were acquired.? ? COMPARISON:? [facility], [place], XR ANKLE LT MIN 3V, 10/25/2020, 10:04. ? FINDINGS:? ? Bones:? There is a probably displaced comminuted fracture of the distal fibula, seen just below the level of the syndesmosis.? There is also a prominently displaced medial malleolar fracture.? On the lateral view, there is believed to be a mildly displaced posterior malleolar fracture, yet this is not well seen. ? A prominent Achilles insertion enthesophyte can be seen. ? Soft tissues:? Soft tissue swelling is seen. ? ? IMPRESSION:? Brightly displaced fractures seen of the medial malleolus and the lateral malleolus. ? Likely posterior malleolar fracture also present. ? If it would be helpful for clinical management decision making in this patient with this given history, please consider a dedicated ankle CT for further evaluation. ? ? ? Dictated by: Viktor Peter M.D. on 08/27/2022 at 10:53 ? ? Approved by: Viktor Peter M.D. on 08/27/2022 at 10:55?? Extremity x-ray #2: Radiologist's Impression: [address] [address] XRay Report Signed Patient: Guanakito Lunsford MR#: [id number] : 1950 Acct:[id number] Age/Sex: 71 / F Date of Service: 08/27/22 Loc: ED Accession Number: [id number] ?? Procedure: XR ankle LT min 3V Ordering Provider: Param Cardenas D.O. responding to primary ROCEDURE:? XR ANKLE LT MIN 3V ? INDICATIONS:? post reduction in splint ? TECHNIQUE:? 3 views of the ankle were acquired.? ? COMPARISON:? [facility], , XR ANKLE LT MIN 3V, 08/27/2022, 11:25. ? FINDINGS:? ? Bones:? Trimalleolar fracture again seen with improved alignment now splinted. ? Soft tissues:? No tibiotalar joint effusion.? Achilles tendon appears normal.? ? ? IMPRESSION:? Splinted trimalleolar fracture. ? Dictated by: Antoine Peralta M.D. on 08/27/2022 at 13:28 ? ? Approved by: Antoine Peralta M.D. on 08/27/2022 at 13:29?? MDM Narrative Medical decision making narrative: Mechanical fall. Neurovascularly intact. No breaks in the skin. Fracture reduced and splint applied. Will discharge home with instructions for the splint. They state that they have crutches at home. They have an orthopedic surgeon that they would prefer to follow-up with. Had a long discussion with the patient and her . She had a provoked DVT in her leg resulting in a pulmonary embolism after having surgery for tibial plateau fracture. That was 2 years ago. She is not currently on anticoagulation. She had no subsequent workup. Was on blood thinners for short period of time and then was discontinued. She was concerned given the injury today that this would happen again. Inform them that if that was a provoked DVT that led to the prior issue which sounds like it was that she would not require anticoagulation today. They were uneasy with that assessment. We discussed the risks and benefits of starting her on anticoagulation. She understands these she is been on these before. She understands that she most likely does not need to be on this medication. They would still like to start on anticoagulation. Was sent to the pharmacy of their choice. They will follow-up with orthopedics. They were given return precautions. They expressed understanding and agreement. Discharge Plan Departure Patient Disposition: Home Clinical Impression: Ankle fracture, left Instructions: How to Use Crutches, DI for Ankle Fracture, How to Take Care of Your Splint Activity Restrictions/Additional Instructions: The splint that was placed today needs to be treated like a cast. You need to keep it on and keep it clean and keep it dry. Do not walk on your left leg. Use the crutches. Try to keep your leg elevated. A prescription for pain medication and nausea medicine [facility]. After discussion of the risks and benefits you opted to be started on anticoagulation. A medication called Eliquis/apixaban was also sent to [facility]. You do need follow-up with an orthopedic surgeon. You can contact the orthopedic surgeon at the number provided below. Return to the emergency department for any new symptoms. Prescriptions: New hydrocodone-acetaminophen 5-325 mg tablet 1 tab PO Q4-6H PRN (Reason: pain) Qty: 20 0RF ondansetron 4 mg tablet,disintegrating 4 mg PO Q6H PRN (Reason: nausea and vomiting) Qty: 14 0RF Eliquis 5 mg tablet 5 mg PO DIRECTED Qty: 70 0RF Rx Instructions: 2T PO BID for 7D then 1T PO BID afterward No Action rosuvastatin 10 mg tablet 10 mg PO DAILY zoledronic [id number] [Reclast] 5 mg/100 mL piggyback 1 ea IV .Yearly acetaminophen 500 mg capsule 500 mg PO DAILY PRN ibuprofen 200 mg capsule 200 mg PO DAILY PRN calcium-vitamin D3-vitamin K 650 mg-12.5 mcg-40 mcg tablet,chewable 1 tab PO DAILY Referrals: Shefali Laboy MD [Physician] - Luis Ramachandran MD [Primary Care Provider] -
[2022-08-27] MEDS: HYDROMORPHONE 1 MG INJ IV (11:55)
--- NOTE | 2022-08-27 13:06 | DI.RAD.S_ITS ---
P responding to primary ROCEDURE: XR ANKLE LT MIN 3V INDICATIONS: post reduction in splint TECHNIQUE: 3 views of the ankle were acquired. COMPARISON: [facility], CR, XR ANKLE LT MIN 3V, 08/27/2022, 11:25. FINDINGS: Bones: Trimalleolar fracture again seen with improved alignment now splinted. Soft tissues: No tibiotalar joint effusion. Achilles tendon appears normal. IMPRESSION: Splinted trimalleolar fracture. Dictated by: Antoine Peralta M.D. on 08/27/2022 at 13:28 Approved by: Antoine Peralta M.D. on 08/27/2022 at 13:29
[2022-08-27] MEDS: ONDANSETRON 4 MG/2 ML INJ IV (13:29)
--- NOTE | 2022-08-27 14:05 | PC.NURSE ---
Pt has crutches at home, states she knows how to use them.
== END 2022-08-27 14:23 | disposition home or self-care (01) ==
PROVIDERS: Emergency Provider Emergency Medicine; PCP Internal Medicine
DX: S82.892A Other fracture of left lower leg, initial encounter for closed fracture (principal); X50.1XXA Overexertion from prolonged static or awkward postures, initial encounter
CPT/HCPCS: 27752; 73610; 96374; 96375; 99284; J1170; J2405

== ENCOUNTER 2022-09-30 10:52 | Emergency (ER) | payer MEDICARE, OTHER, SELFPAY ==
[2022-09-30] VITALS (16 sets, daily range): BP systolic 100–162; BP diastolic 64–89; PULSE 88–115; RESP 15–20; TEMP 37; O2SAT 93–100; BMI 30.2
--- NOTE | 2022-09-30 11:04 | DI.RAD.S_ITS ---
PROCEDURE: XR CHEST 1V INDICATIONS: suspected sepsis TECHNIQUE: One view of the chest was acquired. COMPARISON: [facility], CR, XR CHEST 1V, 06/28/2020, 19:24. FINDINGS: Surgical changes and devices: None. Lungs and pleura: Lungs are clear. No pleural effusions or pneumothorax. Mediastinum: Mediastinal contours appear normal. Heart size is normal. Bones and chest wall: No suspicious bony lesions. Overlying soft tissues appear unremarkable. IMPRESSION: No acute process. Dictated by: Jake Gilman M.D. on 09/30/2022 at 11:41 Approved by: Jake Gilman M.D. on 09/30/2022 at 11:41
--- NOTE | 2022-09-30 11:44 | ED.ABDPAIN ---
HPI - Abdominal Pain General Chief Complaint: Abdominal Pain Stated Complaint: abd pain,fever x4 days Time Seen by Provider: 09/30/22 11:26 Source: patient Mode of arrival: Ambulatory History of Present Illness HPI narrative: Patient is a 71-year-old female history of DVT/PE with recent ankle fracture on Eliquis presenting today with abdominal pain. She says 3 days ago she had fever body aches she had some loose stool generally did not feel well she said those symptoms actually improved she has been afebrile the diarrhea has improved. She has had some decreased appetite. However she started having some lower abdominal discomfort worse with movement. Difficult to tell if she is had painful or frequent urination. She says the diarrhea has stopped. However it is her lower abdomen is quite tender. She denies any bloody stools. She does not have any chest pain or shortness of breath. She denies any flank pain or radiation. She is not been nauseated no vomiting. Related Data Home Medications Medication Instructions Recorded Confirmed acetaminophen 500 mg capsule 500 mg PO DAILY PRN 03/09/22 03/09/22 calcium 650 mg-vitamin D3 12.5 1 tab PO DAILY 03/09/22 03/09/22 mcg-vitamin K 40 mcg chewable tablet ibuprofen 200 mg capsule 200 mg PO DAILY PRN 03/09/22 03/09/22 zoledronic acid 5 mg/100 mL in 1 ea IV .Yearly 03/09/22 03/09/22 mannitol 5 %-water intravenous piggybck (Reclast) Previous Rx's Medication Instructions Recorded apixaban 5 mg tablet (Eliquis) 5 mg PO DIRECTED #70 tabs 08/27/22 ondansetron 4 mg disintegrating 4 mg PO Q6H PRN nausea and 08/27/22 tablet vomiting #14 tabs hydrocodone 5 mg-acetaminophen 325 1 tab PO Q4-6H PRN pain #20 tabs 08/31/22 mg tablet rosuvastatin 10 mg tablet 10 mg PO DAILY #90 tabs 09/10/22 ciprofloxacin HCl 500 mg tablet 500 mg PO BID #14 tabs 09/30/22 (Cipro) metronidazole 500 mg tablet 500 mg PO Q8H 7 days #21 tabs 09/30/22 Allergies Allergy/AdvReac Type Severity Reaction Status Date / Time No Known Drug Allergies Allergy Verified 09/30/22 11:00 Review of Systems Review of Systems ROS Unobtainable: All systems reviewed & are unremarkable except as noted in HPI and below Patient History Medical History Age-related osteoporosis without current pathological fracture Deep vein thrombosis (~06/2019) Fractures Gastric reflux Mixed hyperlipidemia Obesity (BMI 30.0-34.9) Patient denies significant medical history Primary osteoarthritis involving multiple joints Pulmonary embolism (~06/2019) Surgical History Anesthesia History of appendectomy History of bilateral breast reduction surgery History of total abdominal hysterectomy and bilateral salpingo-oophorectomy Tibia/fibula fracture Tibial plateau fracture, left Family History Father Diabetes mellitus History of heart disease Hypertension Social History Smoking Status: Former smoker Smoking Status: Former smoker alcohol intake frequency: holidays/special occasions only Alcohol type: wine Substance Use Type: marijuana Exam Initial Vital Signs Initial Vital Signs: Vital Signs Temperature 98.6 F 09/30/22 10:58 Pulse Rate 113 H 09/30/22 10:58 Respiratory Rate 15 09/30/22 10:58 Blood Pressure 131/83 09/30/22 10:58 Pulse Oximetry 97 09/30/22 10:58 Oxygen Delivery Method 09/30/22 10:58 GENERAL: Alert pleasant 71-year-old female and in no acute distress. HEENT: Head atraumatic,EOMI, pupils reactive, face symmetric, moist mucous membranes CARDIOVASCULAR: Regular rate and rhythm without murmurs, rubs or gallops. RESPIRATORY: Breath sounds equal bilaterally, no wheezes rales or rhonchi. ABDOMEN: Soft, mildly tender suprapubic and lower abdomen no guarding no rebound normal bowel sounds : No CVA tenderness EXTREMITIES: Normal range of motion, no clubbing or edema. Neurovascularly intact NEUROLOGICAL: Alert and oriented x4.Normal gait and speech. SKIN: Warm, dry, no laceration, no petechiae, no rashes or lesions. Course Orders Ordered: ED Orders 09/30/22 11:04 XR chest 1V Stat RT Consult Eval and Treat NOW 09/30/22 11:15 Comprehensive Metabolic Panel Stat Lactate (Lactic Acid) Stat Lipase Stat Partial Thromboplastin Time Stat Procalcitonin Stat Prothrombin Time INR Stat 09/30/22 11:35 Urine Culture Stat Urine Microscopic Stat 09/30/22 11:45 CT abdomen pelvis w con Stat 09/30/22 11:51 EKG-12 Lead Stat 09/30/22 12:51 Blood Culture Stat Complete Blood Count AUTO DIFF Stat 09/30/22 13:13 US abdomen limited Stat 09/30/22 13:56 Covid-19 + FLU A/B + RSV - PCR Stat 09/30/22 15:05 CMP [Comprehensive Metabolic Panel] Stat Discontinued Medications Sodium Chloride (Normal Saline 0.9%) 1,000 mls @ 1,000 mls/hr IV BOLUS ONE Stop: 09/30/22 12:03 Last Infusion: 09/30/22 13:10 Dose: 0 mls/hr Documented By: Admin: 09/30/22 11:54 Dose: 1,000 mls/hr Documented By: MASON Sodium Chloride (Normal Saline 0.9%) 1,000 mls @ 1,000 mls/hr IV BOLUS ONE Stop: 09/30/22 12:44 Last Admin: 09/30/22 14:16 Dose: Not Given Documented By: ASHKAN Vital Signs Vital signs: Vital Signs - 8 hr 09/30/22 12:26 09/30/22 12:26 09/30/22 12:30 Pulse Rate 97 H Blood Pressure 137/80 123/70 Pulse Oximetry 100 Oxygen Delivery Method Room Air 09/30/22 12:30 09/30/22 13:00 09/30/22 13:30 Pulse Rate 94 H 92 H 89 Blood Pressure Pulse Oximetry 98 98 97 Oxygen Delivery Method Room Air 09/30/22 14:00 09/30/22 14:03 09/30/22 14:03 Pulse Rate 92 H 90 Blood Pressure 135/89 Pulse Oximetry 98 98 Oxygen Delivery Method 09/30/22 14:30 09/30/22 14:30 09/30/22 15:00 Pulse Rate 88 Blood Pressure 123/75 134/76 Pulse Oximetry 98 Oxygen Delivery Method 09/30/22 15:00 09/30/22 15:30 09/30/22 16:00 Pulse Rate 91 H 92 H 92 H Blood Pressure Pulse Oximetry 95 97 Oxygen Delivery Method 09/30/22 16:06 12/28/22 16:06 09/30/22 16:30 Pulse Rate 92 H Blood Pressure 149/67 H 162/83 H Pulse Oximetry 99 Oxygen Delivery Method 09/30/22 16:30 Pulse Rate 88 Blood Pressure Pulse Oximetry 95 Oxygen Delivery Method MDM - Abdominal Pain Lab Data Result diagrams: 09/30/22 12:51 09/30/22 15:05 Labs: Lab Results 09/30/22 09/30/22 09/30/22 Range/Units 11:15 11:15 11:15 WBC (4.5-11.0) X10^3/uL RBC (4.0-5.2) X10^6/uL Hgb (12.0-16.0) g/dL Hct (36-46) % MCV (80-100) fL MCH (26-34) PG MCHC (30-36) % RDW (11.6-14.8) % Plt Count (150-400) X10^3/uL Neut % (Auto) (50-75) % Lymph % (Auto) (25-40) % Camb[place] % (Auto) (3-14) % Eos % (Auto) (2-4) % Baso % (Auto) (0-2) % Neut # (Auto) (3864-6636) /uL Lymph # (Auto) (2235-5333) /uL Cambria # (Auto) (0-900) /uL Eos # (Auto) (0-450) /uL Baso # (Auto) (0-100) /uL PT 12.5 (10.1-12.7) SECONDS INR 1.1 (0.9-1.3) APTT 35 (26-36) SECONDS Sodium 140 (137-145) mmol/L Potassium 3.6 (3.4-5.1) mmol/L Chloride 102 (98-107) mmol/L Carbon Dioxide 24 (22-32) mmol/L BUN 16 (7-17) mg/dL Creatinine 0.86 (0.52-1.04) mg/dL Estimated GFR > 60 (>60) mL/min BUN/Creatinine Ratio 18.6 (6-22) Glucose 129 H (80-110) mg/dL Lactate 1.3 (0.7-2.1) mmol/L Calcium 9.4 (8.4-10.2) mg/dL Total Bilirubin 1.5 H (0.2-1.3) mg/dL AST 126 H (14-36) IU/L ALT 317 H (<35) IU/L Alkaline Phosphatase 150 H (38-126) U/L Total Protein 8.6 H (6.3-8.2) g/dL Albumin 4.4 (3.5-5.0) g/dL Globulin 4.2 H (1.7-4.1) g/dL Albumin/Globulin Ratio 1.0 (1.0-2.8) Lipase 157 (23-300) U/L Procalcitonin 0.11 (<0.5) ng/mL Urine RBC (0-5/HPF) Urine WBC (0-5/HPF) Amorphous Sediment Urine Bacteria (None) Urine Mucus (Negative) Ur Culture Indicated? SARS-CoV-2 (PCR) (Negative) Influenza A (RT-PCR) (NEGATIVE) Influenza B (RT-PCR) (NEGATIVE) RSV (PCR) (Negative) 09/30/22 09/30/22 09/30/22 Range/Units 11:35 12:51 13:56 WBC 6.4 (4.5-11.0) X10^3/uL RBC 3.83 L (4.0-5.2) X10^6/uL Hgb 11.0 L (12.0-16.0) g/dL Hct 33.2 L (36-46) % MCV 86.8 (80-100) fL MCH 28.9 (26-34) PG MCHC 33.3 (30-36) % RDW 14.0 (11.6-14.8) % Plt Count 274 (150-400) X10^3/uL Neut % (Auto) 54.3 (50-75) % Lymph % (Auto) 25.8 (25-40) % Cambria % (Auto) 10.2 (3-14) % Eos % (Auto) 8.9 H (2-4) % Baso % (Auto) 0.8 (0-2) % Neut # (Auto) 3500 (2334-3510) /uL Lymph # (Auto) 1600 (4676-4439) /uL Cambria # (Auto) 700 (0-900) /uL Eos # (Auto) 600 H (0-450) /uL Baso # (Auto) 100 (0-100) /uL PT (10.1-12.7) SECONDS INR (0.9-1.3) APTT (26-36) SECONDS Sodium (137-145) mmol/L Potassium (3.4-5.1) mmol/L Chloride (98-107) mmol/L Carbon Dioxide (22-32) mmol/L BUN (7-17) mg/dL Creatinine (0.52-1.04) mg/dL Estimated GFR (>60) mL/min BUN/Creatinine Ratio (6-22) Glucose (80-110) mg/dL Lactate (0.7-2.1) mmol/L Calcium (8.4-10.2) mg/dL Total Bilirubin (0.2-1.3) mg/dL AST (14-36) IU/L ALT (<35) IU/L Alkaline Phosphatase (38-126) U/L Total Protein (6.3-8.2) g/dL Albumin (3.5-5.0) g/dL Globulin (1.7-4.1) g/dL Albumin/Globulin Ratio (1.0-2.8) Lipase (23-300) U/L Procalcitonin (<0.5) ng/mL Urine RBC 0-1/hpf (0-5/HPF) Urine WBC 1-5/hpf (0-5/HPF) Amorphous Sediment 1+ Urine Bacteria None seen (None) Urine Mucus 3+ H (Negative) Ur Culture Indicated? Specimen cultured SARS-CoV-2 (PCR) Negative (Negative) Influenza A (RT-PCR) Flu a negative (NEGATIVE) Influenza B (RT-PCR) Flu b negative (NEGATIVE) RSV (PCR) Negative (Negative) 09/30/22 Range/Units 15:05 WBC (4.5-11.0) X10^3/uL RBC (4.0-5.2) X10^6/uL Hgb (12.0-16.0) g/dL Hct (36-46) % MCV (80-100) fL MCH (26-34) PG MCHC (30-36) % RDW (11.6-14.8) % Plt Count (150-400) X10^3/uL Neut % (Auto) (50-75) % Lymph % (Auto) (25-40) % Cambria % (Auto) (3-14) % Eos % (Auto) (2-4) % Baso % (Auto) (0-2) % Neut # (Auto) (0757-0550) /uL Lymph # (Auto) (7746-9835) /uL Cambria # (Auto) (0-900) /uL Eos # (Auto) (0-450) /uL Baso # (Auto) (0-100) /uL PT (10.1-12.7) SECONDS INR (0.9-1.3) APTT (26-36) SECONDS Sodium 139 (137-145) mmol/L Potassium 3.7 (3.4-5.1) mmol/L Chloride 105 (98-107) mmol/L Carbon Dioxide 25 (22-32) mmol/L BUN 14 (7-17) mg/dL Creatinine 0.80 (0.52-1.04) mg/dL Estimated GFR > 60 (>60) mL/min BUN/Creatinine Ratio 17.5 (6-22) Glucose 97 (80-110) mg/dL Lactate (0.7-2.1) mmol/L Calcium 8.4 (8.4-10.2) mg/dL Total Bilirubin 1.1 (0.2-1.3) mg/dL AST 104 H (14-36) IU/L ALT 264 H (<35) IU/L Alkaline Phosphatase 129 H (38-126) U/L Total Protein 7.1 (6.3-8.2) g/dL Albumin 3.7 (3.5-5.0) g/dL Globulin 3.4 (1.7-4.1) g/dL Albumin/Globulin Ratio 1.1 (1.0-2.8) Lipase (23-300) U/L Procalcitonin (<0.5) ng/mL Urine RBC (0-5/HPF) Urine WBC (0-5/HPF) Amorphous Sediment Urine Bacteria (None) Urine Mucus (Negative) Ur Culture Indicated? SARS-CoV-2 (PCR) (Negative) Influenza A (RT-PCR) (NEGATIVE) Influenza B (RT-PCR) (NEGATIVE) RSV (PCR) (Negative) Point of care testing: Urine Dip Bedside Urine Glucose Negative Bedside Urine Bilirubin - Negative Bedside Urine Ketone - Negative Urine Specific Florien 1.025 Bedside Urine Occult Blood + Bedside Urine pH 6.0 Bedside Urine Protein + 30 Bedside Urine Urobilinogen +/- 1mg Bedside Urine Nitrite - Negative Bedside Urine Leukocytes - Negative Esterase Imaging Data CT scan - abdomen/pelvis: Radiologist's Impression: Signed Patient: Guanakito Lunsford MR#: [id number] : 1950 Acct:[id number] Age/Sex: 71 / F Date of Service: 09/30/22 Loc: ED Accession Number: [id number] ?? Procedure: CT abdomen pelvis w con Ordering Provider: Mikki Arias D.O. PROCEDURE:? CT ABDOMEN PELVIS W CON ? INDICATIONS:? lower ab pain ? TECHNIQUE:? After the administration of intravenous contrast, axial sections acquired from the lung bases to the pubic symphysis.? Coronal and sagittal reformats were performed.? For radiation dose reduction, the following was used:? automated exposure control, adjustment of mA and/or kV according to patient size.? ? COMPARISON:? None. ? FINDINGS:? Image quality:? Excellent.? ? Lung bases:? Unremarkable. Heart:? No significant findings. ? ABDOMEN: Liver:? Unremarkable.? ? A low-density cystic lesion is present within the right hepatic lobe. Gallbladder:? Unremarkable.? ? Biliary ducts:? Unremarkable.? ? Pancreas:? Unremarkable.? ? Spleen:? Unremarkable.? ? Adrenal Glands:? Unremarkable.? ? Kidneys and Ureters:? Unremarkable.? There are left low-density pararenal cysts noted.? ? Stomach and Bowel:? Stomach, small bowel loops, and colon are unremarkable.? There are extensive sigmoid colon diverticular outpouchings present.? Focal mucosal thickening and pericolonic fat stranding is present within the lower sigmoid colon. The appendix is not visualized; however there is no discrete right lower quadrant fluid or fat stranding to suggest acute appendicitis. Peritoneum:? No abnormal intraperitoneal fluid.? No free air.? ? Ventral Wall: ? No hernias.? Abdominal Nodes:? No retroperitoneal or mesenteric adenopathy by size criteria.? Vessels:? Aorta and inferior vena cava are normal in size.? ? PELVIS: Pelvic Organs:? Unremarkable.? ? Bladder:? Unremarkable.? ? Pelvic Nodes: No enlarged lymph nodes.? Miscellaneous: No hernias are seen. ? ? ? Bones:? Unremarkable.? IMPRESSION:? ? 1. Acute non perforated sigmoid diverticulitis.? ? ? Dictated by: Lisbeth Shi M.D. on 09/30/2022 at 12:41 ? ? Approved by: Lisbeth Shi M.D. on 09/30/2022 at 12:46 ? US - abdomen: Radiologist's Impression: Signed Patient: Guanakito Lunsford MR#: [id number] : 1950 Acct:[id number] Age/Sex: 71 / F Date of Service: 09/30/22 Loc: ED Accession Number: [id number] ?? Procedure: US abdomen limited Ordering Provider: Mikki Arias D.O. PROCEDURE:? US ABDOMEN LIMITED ? INDICATIONS:? elevated liver enzymes ? TECHNIQUE:? Real-time scanning was performed of the abdominal and retroperitoneal organs, with image documentation.? ? COMPARISON:? None. ? FINDINGS:? This is a limited study given patient body habitus. ? Liver:? Liver is normal in size and homogeneous in echotexture.? ? Gallbladder:? Gallstones are present in the gallbladder fundus.? A gallstone is also visualized within the neck of the gallbladder.? The gallbladder wall measures between 2 and 4 mm in diameter.? No pericholecystic fluid or sonographic Leon sign. ? Biliary ducts:? Intrahepatic bile ducts are non-dilated.? Extrahepatic bile duct caliber measures 4 mm.? Normal is 6-7 mm or less in diameter, or 10 mm or less post-cholecystectomy.? ? ? IMPRESSION:? ? 1. Cholelithiasis.? The gallbladder wall varies in thickness from 2-4 mm.? There is no pericholecystic fluid or sonographic Leon sign.? These findings raise the suspicion for focal regions of adenomyomatosis versus diffuse gallbladder wall thickening in the setting of acute cholecystitis. ? ? ? Dictated by: Lisbeth Shi M.D. on 09/30/2022 at 14:45 ? ECG Data Interpretation: Sinus rhythm rate 102 DC interval 146 QRS 126 QTC 492 right bundle-branch block noted no ischemic changes. 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 MDM Narrative Medical decision making narrative: Patient is a healthy 71-year-old female who presents with lower abdominal pain and fever ongoing for the last couple of days. CT does confirm non perforated non complicated diverticulitis without signs of sepsis or leukocytosis. However she is incidentally found to have elevated bilirubin of 1.5 and elevated liver enzymes. She is re-evaluated she is absolutely no right upper quadrant pain. Ultrasound does show cholelithiasis however also possible adenomyomatosis. Patient does report that she is a history of Gilbert's syndrome but she is never previously had elevated liver enzymes. I did discuss with Dr. Moy on-call surgery in regards to test results and exam which does not clinically correlate. At this time she recommends repeating blood work which actually does show improved bilirubin and improve liver enzymes. At this time recommend outpatient follow-up. Discussion with her about outpatient antibiotics, he is hesitant to take them with their prescribed to her. She does not require anything further for pain management.. At this time without right upper quadrant pain I and improving bilirubin I see no need for MRCP. Choledocholithiasis is less likely. Discharge Plan Departure Patient Disposition: Home Clinical Impression: Diverticulitis Instructions: Diverticulitis, DI for Diverticulitis Activity Restrictions/Additional Instructions: *You have been diagnosed with diverticulitis *What to do: At this time you do have elevated liver enzymes for ultrasound is negative acute cholecystitis but possible gallstones. Please have liver enzymes re-evaluated *Continue to take medications as directed--> SENT TO [facility] Cipro 500 mg twice a day for 7 days Flagyl 500 mg 3 times a day for 7 days *Follow up with your primary care provider in 2-3 days or call [phone] *Return to ER if you should have increasing pain bloody stools fever [or] any new, worsening or concerning symptoms Prescriptions: New ciprofloxacin HCl [Cipro] 500 mg tablet 500 mg PO BID Qty: 14 0RF metronidazole 500 mg tablet 500 mg PO Q8H 7 Days Qty: 21 0RF No Action hydrocodone-acetaminophen 5-325 mg tablet 1 tab PO Q4-6H PRN (Reason: pain) Qty: 20 0RF rosuvastatin 10 mg tablet 10 mg PO DAILY Qty: 90 4RF zoledronic [id number] [Reclast] 5 mg/100 mL piggyback 1 ea IV .Yearly acetaminophen 500 mg capsule 500 mg PO DAILY PRN ibuprofen 200 mg capsule 200 mg PO DAILY PRN calcium-vitamin D3-vitamin K 650 mg-12.5 mcg-40 mcg tablet,chewable 1 tab PO DAILY ondansetron 4 mg tablet,disintegrating 4 mg PO Q6H PRN (Reason: nausea and vomiting) Qty: 14 0RF Eliquis 5 mg tablet 5 mg PO DIRECTED Qty: 70 0RF Rx Instructions: 2T PO BID for 7D then 1T PO BID afterward Referrals: Luis Ramachandran MD [Primary Care Provider] - Stand Alone Forms: Patient Portal/API
--- NOTE | 2022-09-30 11:45 | DI.CT.S_ITS ---
PROCEDURE: CT ABDOMEN PELVIS W CON INDICATIONS: lower ab pain TECHNIQUE: After the administration of intravenous contrast, axial sections acquired from the lung bases to the pubic symphysis. Coronal and sagittal reformats were performed. For radiation dose reduction, the following was used: automated exposure control, adjustment of mA and/or kV according to patient size. COMPARISON: None. FINDINGS: Image quality: Excellent. Lung bases: Unremarkable. Heart: No significant findings. ABDOMEN: Liver: Unremarkable. A low-density cystic lesion is present within the right hepatic lobe. Gallbladder: Unremarkable. Biliary ducts: Unremarkable. Pancreas: Unremarkable. Spleen: Unremarkable. Adrenal Glands: Unremarkable. Kidneys and Ureters: Unremarkable. There are left low-density pararenal cysts noted. Stomach and Bowel: Stomach, small bowel loops, and colon are unremarkable. There are extensive sigmoid colon diverticular outpouchings present. Focal mucosal thickening and pericolonic fat stranding is present within the lower sigmoid colon. The appendix is not visualized; however there is no discrete right lower quadrant fluid or fat stranding to suggest acute appendicitis. Peritoneum: No abnormal intraperitoneal fluid. No free air. Ventral Wall: No hernias. Abdominal Nodes: No retroperitoneal or mesenteric adenopathy by size criteria. Vessels: Aorta and inferior vena cava are normal in size. PELVIS: Pelvic Organs: Unremarkable. Bladder: Unremarkable. Pelvic Nodes: No enlarged lymph nodes. Miscellaneous: No hernias are seen. Bones: Unremarkable. IMPRESSION: 1. Acute non perforated sigmoid diverticulitis. Dictated by: Lisbeth Shi M.D. on 09/30/2022 at 12:41 Approved by: Lisbeth Shi M.D. on 09/30/2022 at 12:46
[2022-09-30 11:47] LABS: INR 1.1 (0.9-1.3); Prothrombin Time 12.5 SECONDS (10.1-12.7)
[2022-09-30 11:49] LABS: PTT Partial Thromboplastin Tim 35 SECONDS (26-36)
[2022-09-30 11:51] LABS: Lactate (Lactic Acid) 1.3 mmol/L (0.7-2.1)
[2022-09-30] MEDS: SODIUM CHLORIDE 0.9% 1,000 ML 1000 ML IV (11:54)
[2022-09-30 11:55] LABS: Alanine Aminotransferase 317 IU/L (<35); Albumin 4.4 g/dL (3.5-5.0); Alkaline Phosphatase 150 U/L (38-126); Aspartate Aminotransferase 126 IU/L (14-36); BUN Creatinine Ratio 18.6 (6-22); Bilirubin Total 1.5 mg/dL (0.2-1.3); Blood Urea Nitrogen 16 mg/dL (7-17); Calcium 9.4 mg/dL (8.4-10.2); Carbon Dioxide 24 mmol/L (22-32); Chloride 102 mmol/L (98-107); Estimated Glomerular Filt Rate > 60 mL/min (>60); Globulin 4.2 g/dL (1.7-4.1); Glucose 129 mg/dL (80-110); HEMOLYSIS < 15 (0-50); Lipase 157 U/L (23-300); Potassium 3.6 mmol/L (3.4-5.1); Sodium 140 mmol/L (137-145); Total Protein 8.6 g/dL (6.3-8.2)
[2022-09-30 12:11] LABS: Procalcitonin 0.11 ng/mL (<0.5)
[2022-09-30 12:12] LABS: Amorphous Sediment Urine 1+; Bacteria Urine None Seen; Culture Indicated Urine Specimen Cultured; Mucus Urine 3+ (Negative); RBC Urine 0-1/HPF (0-5/HPF); WBC Urine 1-5/HPF (0-5/HPF)
[2022-09-30 13:08] LABS: Add Manual Diff / Slide Review NO; Basophils Absolute Auto 100 /uL (0-100); Basophils Percent Auto 0.8 % (0-2); Eosinophils Absolute Auto 600 /uL (0-450); Eosinophils Percent Auto 8.9 % (2-4); Hematocrit 33.2 % (36-46); Lymphocytes Absolute Auto 1600 /uL (1100-4500); Lymphocytes Percent Auto 25.8 % (25-40); Mean Corpuscular HGB Conc 33.3 % (30-36); Mean Corpuscular Hemoglobin 28.9 PG (26-34); Mean Corpuscular Volume 86.8 fL (80-100); Monocytes Absolute Auto 700 /uL (0-900); Monocytes Percent Auto 10.2 % (3-14); Neutrophils Absolute Auto 3500 /uL (1500-7000); Neutrophils Percent Auto 54.3 % (50-75); Platelet Count 274 X10^3/uL (150-400); Red Blood Cell Count 3.83 X10^6/uL (4.0-5.2); White Blood Cell Count 6.4 X10^3/uL (4.5-11.0)
--- NOTE | 2022-09-30 13:13 | DI.US.S_ITS ---
PROCEDURE: US ABDOMEN LIMITED INDICATIONS: elevated liver enzymes TECHNIQUE: Real-time scanning was performed of the abdominal and retroperitoneal organs, with image documentation. COMPARISON: None. FINDINGS: This is a limited study given patient body habitus. Liver: Liver is normal in size and homogeneous in echotexture. Gallbladder: Gallstones are present in the gallbladder fundus. A gallstone is also visualized within the neck of the gallbladder. The gallbladder wall measures between 2 and 4 mm in diameter. No pericholecystic fluid or sonographic Leon sign. Biliary ducts: Intrahepatic bile ducts are non-dilated. Extrahepatic bile duct caliber measures 4 mm. Normal is 6-7 mm or less in diameter, or 10 mm or less post-cholecystectomy. IMPRESSION: 1. Cholelithiasis. The gallbladder wall varies in thickness from 2-4 mm. There is no pericholecystic fluid or sonographic Leon sign. These findings raise the suspicion for focal regions of adenomyomatosis versus diffuse gallbladder wall thickening in the setting of acute cholecystitis. Dictated by: Lisbeth Shi M.D. on 09/30/2022 at 14:45 Approved by: Lisbeth Shi M.D. on 09/30/2022 at 14:47
[2022-09-30 13:48] LABS: Influenza A - CEPHEID Flu A NEGATIVE (NEGATIVE); Influenza B - CEPHEID Flu B NEGATIVE (NEGATIVE); Respiratory Syncytial Virus Negative (Negative)
[2022-09-30 13:56] LABS: COVID-19 CEPHEID 4-PLEX PCR Negative (Negative)
[2022-09-30 15:36] LABS: Alanine Aminotransferase 264 IU/L (<35); Albumin 3.7 g/dL (3.5-5.0); Albumin Globulin Ratio 1.1 (1.0-2.8); Alkaline Phosphatase 129 U/L (38-126); Aspartate Aminotransferase 104 IU/L (14-36); BUN Creatinine Ratio 17.5 (6-22); Bilirubin Total 1.1 mg/dL (0.2-1.3); Blood Urea Nitrogen 14 mg/dL (7-17); Calcium 8.4 mg/dL (8.4-10.2); Carbon Dioxide 25 mmol/L (22-32); Chloride 105 mmol/L (98-107); Estimated Glomerular Filt Rate > 60 mL/min (>60); Globulin 3.4 g/dL (1.7-4.1); Glucose 97 mg/dL (80-110); HEMOLYSIS < 15 (0-50); Potassium 3.7 mmol/L (3.4-5.1); Sodium 139 mmol/L (137-145); Total Protein 7.1 g/dL (6.3-8.2)
== END 2022-09-30 17:07 | disposition home or self-care (01) ==
PROVIDERS: Emergency Provider Emergency Medicine; PCP Internal Medicine
DX: K57.92 Diverticulitis of intestine, part unspecified, without perforation or abscess without bleeding (principal); R10.30 Lower abdominal pain, unspecified; Z20.822 Contact with and (suspected) exposure to COVID-19
CPT/HCPCS: 0241U; 36415; 51798; 71045; 74177; 76705; 80053; 81003; 81015; 83605; 83690; 84145; 85025; 85610; 85730; 87040; 87086; 93005; 96360; 99284; 99285; Q9967

== ENCOUNTER → 2022-10-02 12:30 | Outpatient (CLI) | payer MEDICARE, OTHER, SELFPAY ==
[2022-10-02 13:36] LABS: Hematocrit 33.8 % (36-46); Hemoglobin 11.4 g/dL (12.0-16.0); Mean Corpuscular HGB Conc 33.8 % (30-36); Mean Corpuscular Hemoglobin 29.2 PG (26-34); Mean Corpuscular Volume 86.4 fL (80-100); Platelet Count 354 X10^3/uL (150-400); Red Blood Cell Count 3.92 X10^6/uL (4.0-5.2); White Blood Cell Count 6.4 X10^3/uL (4.5-11.0)
[2022-10-02 14:13] LABS: Alanine Aminotransferase 194 IU/L (<35); Albumin Globulin Ratio 1.1 (1.0-2.8); Alkaline Phosphatase 122 U/L (38-126); Aspartate Aminotransferase 66 IU/L (14-36); BUN Creatinine Ratio 18.3 (6-22); Bilirubin Total 0.7 mg/dL (0.2-1.3); Blood Urea Nitrogen 15 mg/dL (7-17); Calcium 9.4 mg/dL (8.4-10.2); Carbon Dioxide 23 mmol/L (22-32); Chloride 106 mmol/L (98-107); Estimated Glomerular Filt Rate > 60 mL/min (>60); Globulin 3.5 g/dL (1.7-4.1); Glucose 103 mg/dL (80-110); HEMOLYSIS < 15 (0-50); Sodium 141 mmol/L (137-145); Total Protein 7.5 g/dL (6.3-8.2)
== END ==
PROVIDERS: PCP Internal Medicine; Referring Provider Internal Medicine; Visit Provider Internal Medicine
DX: K80.20 Calculus of gallbladder without cholecystitis without obstruction (principal); K57.92 Diverticulitis of intestine, part unspecified, without perforation or abscess without bleeding; R74.01 Elevation of levels of liver transaminase levels
CPT/HCPCS: 36415; 80053; 85027

== ENCOUNTER → 2022-10-15 08:49 | Outpatient (CLI) | payer MEDICARE, OTHER, SELFPAY ==
[2022-10-15 10:22] LABS: Alanine Aminotransferase 38 IU/L (<35); Albumin 4.2 g/dL (3.5-5.0); Albumin Globulin Ratio 1.3 (1.0-2.8); Alkaline Phosphatase 61 U/L (38-126); Aspartate Aminotransferase 24 IU/L (14-36); Bilirubin Total 0.6 mg/dL (0.2-1.3); Blood Urea Nitrogen 17 mg/dL (7-17); Calcium 9.6 mg/dL (8.4-10.2); Carbon Dioxide 27 mmol/L (22-32); Chloride 103 mmol/L (98-107); Estimated Glomerular Filt Rate > 60 mL/min (>60); Globulin 3.2 g/dL (1.7-4.1); Glucose 100 mg/dL (80-110); HEMOLYSIS < 15 (0-50); Potassium 4.7 mmol/L (3.4-5.1); Sodium 138 mmol/L (137-145); Total Protein 7.4 g/dL (6.3-8.2)
[2022-10-15 10:55] LABS: Hepatitis B Surface Antigen NEGATIVE s/c (NEGATIVE)
[2022-10-15 11:11] LABS: Hep C Virus Ab w/Reflex Quant NEGATIVE s/c (NEGATIVE)
[2022-10-16 07:27] LABS: Hepatitis A Antibody Total Positive (Negative); Hepatitis B Surf AB Quant 5.1 mIU/mL (Immunity>9.9)
[2022-10-16 11:08] LABS: Hepatitis B Core IgM Negative (Negative)
[2022-10-17 04:25] LABS: Hepatitis B Core Antibody Negative (Negative); Hepatitis BE Antigen Negative (Negative)
[2022-10-19 08:52] LABS: Hepatitis Be Antibody Negative (Negative)
== END ==
PROVIDERS: PCP Internal Medicine; Referring Provider Internal Medicine Gastroenterology; Visit Provider Internal Medicine Gastroenterology
DX: R74.8 Abnormal levels of other serum enzymes (principal)
CPT/HCPCS: 36415; 80053; 86704; 86705; 86706; 86707; 86708; 86803; 87340; 87350

== ENCOUNTER → 2023-01-21 07:02 | Outpatient (CLI) | payer MEDICARE, OTHER, SELFPAY ==
[2023-01-21 07:54] LABS: BUN Creatinine Ratio 21.6 (6-22); Blood Urea Nitrogen 19 mg/dL (7-17); Calcium 9.1 mg/dL (8.4-10.2); Carbon Dioxide 30 mmol/L (22-32); Chloride 104 mmol/L (98-107); Estimated Glomerular Filt Rate > 60 mL/min (>60); Glucose 106 mg/dL (80-110); HEMOLYSIS < 15 (0-50); Sodium 139 mmol/L (137-145)
== END ==
PROVIDERS: PCP Internal Medicine; Referring Provider Internal Medicine; Visit Provider Internal Medicine
DX: R79.89 Other specified abnormal findings of blood chemistry (principal)
CPT/HCPCS: 36415; 80048

== ENCOUNTER → 2023-02-15 10:34 | Outpatient (CLI) | payer MEDICARE, OTHER, SELFPAY ==
[2023-02-15 11:00] LABS: Hematocrit 37.2 % (36-46); Hemoglobin 12.6 g/dL (12.0-16.0); Mean Corpuscular HGB Conc 33.9 % (30-36); Mean Corpuscular Hemoglobin 28.6 PG (26-34); Mean Corpuscular Volume 84.4 fL (80-100); Platelet Count 330 X10^3/uL (150-400); Red Cell Distribution Width 14.3 % (11.6-14.8); White Blood Cell Count 6.4 X10^3/uL (4.5-11.0)
[2023-02-15 11:23] LABS: Alanine Aminotransferase 55 IU/L (<35); Albumin 4.3 g/dL (3.5-5.0); Albumin Globulin Ratio 1.3 (1.0-2.8); Alkaline Phosphatase 40 U/L (38-126); Aspartate Aminotransferase 39 IU/L (14-36); BUN Creatinine Ratio 29.9 (6-22); Bilirubin Total 1.3 mg/dL (0.2-1.3); Blood Urea Nitrogen 26 mg/dL (7-17); Calcium 9.4 mg/dL (8.4-10.2); Carbon Dioxide 23 mmol/L (22-32); Chloride 107 mmol/L (98-107); Cholesterol 159 mg/dL (140-199); Estimated Glomerular Filt Rate > 60 mL/min (>60); Globulin 3.3 g/dL (1.7-4.1); Glucose 104 mg/dL (80-110); HDL Cholesterol 58 mg/dL (40-60); HEMOLYSIS < 15 (0-50); LDL Cholesterol Calculated 80 mg/dL (<100); Potassium 4.3 mmol/L (3.4-5.1); Sodium 138 mmol/L (137-145); Total Protein 7.6 g/dL (6.3-8.2); Triglycerides 107 mg/dL (35-150)
[2023-02-15 11:52] LABS: TSH w/ Reflex to FT4 2.73 uIU/mL (0.47-4.68)
[2023-02-16 05:29] LABS: Labcorp Hemoglobin (Hb) A1c 6.5 % (4.8-5.6)
== END ==
PROVIDERS: PCP Internal Medicine; Referring Provider Internal Medicine; Visit Provider Internal Medicine
DX: E78.2 Mixed hyperlipidemia (principal); M81.0 Age-related osteoporosis without current pathological fracture; R79.89 Other specified abnormal findings of blood chemistry
CPT/HCPCS: 36415; 80053; 80061; 83036; 84443; 85027

== ENCOUNTER → 2023-06-04 12:21 | Outpatient (CLI) | payer MEDICARE, OTHER, SELFPAY ==
[2023-06-04 13:52] LABS: BUN Creatinine Ratio 23.3 (6-22); Blood Urea Nitrogen 21 mg/dL (7-17); Calcium 9.6 mg/dL (8.4-10.2); Carbon Dioxide 25 mmol/L (22-32); Chloride 103 mmol/L (98-107); Estimated Glomerular Filt Rate > 60 mL/min (>60); Glucose 131 mg/dL (80-110); HEMOLYSIS < 15 (0-50); Potassium 4.6 mmol/L (3.4-5.1); Sodium 139 mmol/L (137-145)
[2023-06-04 13:54] LABS: Hemoglobin A1C% w Est Avg Glu 5.9 % (4.0-6.0)
[2023-06-04 16:45] LABS: Creatinine Urine Random 152.3 mg/dL
[2023-06-04 16:49] LABS: Microalbumi Creatinin Ratio Ur 42.6 ug/mg CR (<30); Microalbumin Urine Random 6.5 mg/dL (0-1.6)
== END ==
PROVIDERS: PCP Internal Medicine; Referring Provider Internal Medicine; Visit Provider Internal Medicine
DX: E11.69 Type 2 diabetes mellitus with other specified complication (principal); E78.5 Hyperlipidemia, unspecified
CPT/HCPCS: 36415; 80048; 82043; 82570; 83036

== ENCOUNTER → 2023-09-14 09:12 | Outpatient (CLI) | payer MEDICARE, OTHER, SELFPAY ==
[2023-09-14 09:47] LABS: Add Manual Diff / Slide Review NO; Basophils Absolute Auto 100 /uL (0-100); Basophils Percent Auto 0.9 % (0-2); Eosinophils Absolute Auto 300 /uL (0-450); Eosinophils Percent Auto 5.1 % (2-4); Hemoglobin 13.2 g/dL (12.0-16.0); Lymphocytes Absolute Auto 2200 /uL (1100-4500); Lymphocytes Percent Auto 37.3 % (25-40); Mean Corpuscular HGB Conc 33.8 % (30-36); Mean Corpuscular Hemoglobin 29.1 PG (26-34); Monocytes Absolute Auto 500 /uL (0-900); Monocytes Percent Auto 8.4 % (3-14); Neutrophils Absolute Auto 2800 /uL (1500-7000); Neutrophils Percent Auto 48.3 % (50-75); Platelet Count 327 X10^3/uL (150-400); Red Blood Cell Count 4.53 X10^6/uL (4.0-5.2); Red Cell Distribution Width 13.7 % (11.6-14.8); White Blood Cell Count 5.8 X10^3/uL (4.5-11.0)
[2023-09-14 10:15] LABS: C-Reactive Protein Quant 1.7 mg/dL (<1.0)
== END ==
PROVIDERS: PCP Internal Medicine; Referring Provider Internal Medicine; Visit Provider Internal Medicine
DX: R10.9 Unspecified abdominal pain (principal)
CPT/HCPCS: 36415; 85025; 86140

== ENCOUNTER 2024-01-07 04:07 | Emergency (ER) | payer MEDICARE, OTHER, SELFPAY ==
[2024-01-07] VITALS (10 sets, daily range): BP systolic 109–140; BP diastolic 63–87; PULSE 96–120; RESP 18–20; TEMP 36.4–36.9; O2SAT 93–100; BMI 29.7
--- NOTE | 2024-01-07 04:22 | DI.CT.S_ITS ---
PROCEDURE: CT ABDOMEN PELVIS W CON INDICATIONS: LLQ ABD PAIN, HX DIVERTICULITIS TECHNIQUE: After the administration of intravenous contrast, axial sections acquired from the lung bases to the pubic symphysis. Coronal and sagittal reformats were performed. For radiation dose reduction, the following was used: automated exposure control, adjustment of mA and/or kV according to patient size. COMPARISON: [facility], CT, CT ABDOMEN PELVIS W CON, 09/30/2022, 12:13. FINDINGS: Image quality: Diagnostic Lower chest: Bibasilar atelectasis. No hiatal hernia. Normal heart size. Liver: Right lobe suspected cyst again seen, with a single thin septation. Gallbladder and biliary system: Cholelithiasis, nondilated biliary system Pancreas: No ductal dilation Spleen: Nonenlarged Adrenals: No discrete nodules Kidneys: Left parapelvic cysts. No complicated lesion requiring follow-up identified. No hydronephrosis. Vessels and lymph nodes: No abdominal aortic aneurysm. No pathologic lymph nodes by size criteria. There are atherosclerotic calcifications. The main portal vein appears patent. Bowel and peritoneum: No evidence of small bowel obstruction or pathologic ascites. No abscess is identified. [id number] inflammatory changes surrounding the sigmoid colon, in a similar location compared to 09/30/2022. Extensive colonic diverticulosis. Body wall: Tiny fat containing umbilical hernia Pelvis: Bladder is unremarkable. There is suggestion of pelvic descent. The uterus is absent. The vaginal cuff is in close proximity to the inflammatory changes of the underside of the sigmoid colon Bones: Degenerative changes, no acute or suspicious osseous finding. IMPRESSION: Acute uncomplicated diverticulitis at the sigmoid colon, in a similar position compared to 2021. Consider GI follow-up following treatment. No abscess identified. Other findings as above. Agree with prelim report. Dictated by: Juan Dickens M.D. on 01/07/2024 at 7:59 Approved by: Juan Dickens M.D. on 01/07/2024 at 8:03
--- NOTE | 2024-01-07 04:27 | ED_ITS ---
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 Yesterday patient noticed worsening pain and called her GI doctor, who recommended ER evaluation if her symptoms persisted. This morning the patient's left lower quadrant pain woke her up from sleep and she her fever, so she decided to present for evaluation. Last flare- up of diverticulitis in September of 2022. Subsequently underwent colonoscopy that showed extensive diverticulosis without polyps or other lesions. Related Data Home Medications Medication Instructions Recorded Confirmed calcium 650 mg-vitamin D3 12.5 1 tab PO DAILY 03/09/22 11/03/23 mcg-vitamin K 40 mcg chewable tablet rosuvastatin 10 mg tablet 10 mg PO DAILY 03/26/23 11/03/23 Previous Rx's Medication Instructions Recorded celecoxib 100 mg capsule 100 mg PO BID #180 caps 02/08/23 ciprofloxacin HCl 500 mg tablet 500 mg PO BID #20 tabs 01/07/24 (Cipro) hydrocodone 5 mg-acetaminophen 325 1 tab PO Q8H PRN pain #14 tabs 01/07/24 mg tablet metronidazole 500 mg tablet 500 mg PO Q8H 7 days #30 tabs 01/07/24 Allergies Allergy/AdvReac Type Severity Reaction Status Date / Time No Known Drug Allergies Allergy Verified 11/03/23 13:49 Review of Systems Review of Systems Narrative: Negative except as noted above Patient History Medical History Elevated blood pressure reading without diagnosis of hypertension Microalbuminuria DM type 2 with diabetic dyslipidemia Right rotator cuff tear Elevated serum creatinine History of pulmonary embolism Personal history of DVT (deep vein thrombosis) Closed left ankle fracture Cholelithiasis Obesity (BMI 30.0-34.9) Primary osteoarthritis involving multiple joints Age-related osteoporosis without current pathological fracture Mixed hyperlipidemia Fractures Gastric reflux Patient denies significant medical history Surgical History Anesthesia Tibial plateau fracture, left Tibia/fibula fracture History of bilateral breast reduction surgery History of appendectomy History of total abdominal hysterectomy and bilateral salpingo-oophorectomy Family History Father Diabetes mellitus History of heart disease Hypertension Social History Smoking Status: Former smoker Smoking Status: Former smoker alcohol intake frequency: holidays/special occasions only Alcohol type: wine Substance Use Type: marijuana Exam Narrative Exam Narrative: Const: Awake, alert, no acute distress, nontoxic appearing Cardiac: regular rate, regular rhythm RESP: unlabored, clear bilaterally, no wheezing GI: Soft, left lower quadrant and suprapubic tenderness to deep palpation without rebound or guarding MSK: Atraumatic, full range of motion, pulses equal Skin: Warm, Dry, intact, no rashes Neuro: AO x3, CN II-XII grossly intact, moves all extremities Initial Vital Signs Initial Vital Signs: Vital Signs Blood Pressure 133/87 01/07/24 04:18 Course Orders Ordered: Discontinued Medications Sodium Chloride (Normal Saline 0.9%) 1,000 mls @ 1,000 mls/hr IV BOLUS ONE Stop: 01/07/24 05:21 Last Infusion: 01/07/24 06:07 Dose: Infused Documented By: Admin: 01/07/24 04:47 Dose: 1,000 mls/hr Documented By: SYMONE Ceftriaxone Sodium 1,000 mg/ (Sodium Chloride) 100 mls @ 200 mls/hr IV NOW ONE Stop: 01/07/24 06:08 Last Infusion: 01/07/24 06:45 Dose: Infused Documented By: Admin: 01/07/24 06:12 Dose: 200 mls/hr Documented By: WATSON Metronidazole (Flagyl) 500 mg in 100 mls @ 100 mls/hr IV NOW ONE Stop: 01/07/24 07:06 Last Admin: 01/07/24 06:48 Dose: 100 mls/hr Documented By: WATSON Morphine Sulfate (Morphine 4 Mg/Ml Inj) 4 mg IV NOW ONE Stop: 01/07/24 04:23 Last Admin: 01/07/24 07:16 Dose: Not Given Documented By: ANÍBAL Ondansetron HCl (Ondansetron 4 Mg/2 Ml Inj) 4 mg IV NOW ONE Stop: 01/07/24 04:23 Last Admin: 01/07/24 07:15 Dose: Not Given Documented By: ANÍBAL Vital Signs Vital signs: Vital Signs - 8 hr 01/07/24 04:18 01/07/24 04:19 01/07/24 04:23 Temperature 98.4 F Pulse Rate 120 H 120 H Respiratory Rate 18 Blood Pressure 133/87 133/87 Pulse Oximetry 95 95 Oxygen Delivery Method Room Air Room Air 01/07/24 04:23 01/07/24 04:23 01/07/24 05:01 Temperature Pulse Rate 114 H 100 H Respiratory Rate Blood Pressure 129/68 Pulse Oximetry 93 96 Oxygen Delivery Method Room Air Room Air 01/07/24 05:02 Temperature Pulse Rate Respiratory Rate Blood Pressure 109/63 Pulse Oximetry Oxygen Delivery Method MDM - Abdominal Pain Lab Data 01/07/24 04:40 01/07/24 04:40 Labs: Lab Results 01/07/24 01/07/24 Range/Units 04:40 04:51 WBC 12.8 H (4.5-11.0) X10^3/uL RBC 4.47 (4.0-5.2) X10^6/uL Hgb 13.0 (12.0-16.0) g/dL Hct 38.7 (36-46) % MCV 86.4 (80-100) fL MCH 29.1 (26-34) PG MCHC 33.7 (30-36) % RDW 13.8 (11.6-14.8) % Plt Count 318 (150-400) X10^3/uL Neut % (Auto) 72.2 (50-75) % Lymph % (Auto) 16.6 L (25-40) % [place] % (Auto) 9.4 (3-14) % Eos % (Auto) 1.2 L (2-4) % Baso % (Auto) 0.6 (0-2) % Neut # (Auto) 9300 H (3465-8898) /uL Lymph # (Auto) 2100 (8634-2853) /uL [place] # (Auto) 1200 H (0-900) /uL Eos # (Auto) 200 (0-450) /uL Baso # (Auto) 100 (0-100) /uL Sodium 137 (137-145) mmol/L Potassium 4.2 (3.4-5.1) mmol/L Chloride 106 (98-107) mmol/L Carbon Dioxide 22 (22-32) mmol/L BUN 17 (7-17) mg/dL Creatinine 0.91 (0.52-1.04) mg/dL Estimated GFR > 60 (>60) mL/min BUN/Creatinine Ratio 18.7 (6-22) Glucose 133 H (80-110) mg/dL Lactate 1.3 (0.7-2.1) mmol/L Calcium 9.5 (8.4-10.2) mg/dL Total Bilirubin 1.9 H (0.2-1.3) mg/dL AST 133 H (14-36) IU/L ALT 137 H (<35) IU/L Alkaline Phosphatase 57 (38-126) U/L Total Protein 8.0 (6.3-8.2) g/dL Albumin 4.3 (3.5-5.0) g/dL Globulin 3.7 (1.7-4.1) g/dL Albumin/Globulin Ratio 1.2 (1.0-2.8) Lipase 156 (23-300) U/L Urine Color Yellow Urine Appearance Clear Urine pH 7.0 (4.5-8.0) Ur Specific [place] 1.010 (1.000-1.035) Urine Protein Trace H (Negative) Urine Glucose (UA) Negative (Negative) g/dL Urine Ketones Negative (NEGATIVE) Urine Occult Blood Trace-intact (Negative) Urine Nitrate Negative (Negative) Urine Bilirubin Negative (NEGATIVE) Urine Urobilinogen 1.0 (0.2) E.U./dL Ur Leukocyte Esterase 1+ H (NEGATIVE) Urine RBC None seen (0-5/HPF) Urine WBC 0-1/hpf (0-5/HPF) Ur Squamous Epith Cells 0-1 /hpf (0-5/HPF) Urine Bacteria None seen (None) Ur Culture Indicated? Cult not indicated Vol Urine Centrifuged 10ml (spun) MDM Narrative Medical decision making narrative: Left lower quadrant abdominal pain with symptoms similar to previous diagnosis of diverticulitis. Abdomen is soft, tender to palpation in the suprapubic region but no peritoneal signs. Vital signs unremarkable, no indication of underlying sepsis. Laboratory work significant for leukocytosis with WBC count 12.8, hemoglobin 13, platelets 318. Chemistry shows sodium 137, potassium 4.2, creatinine 0.91, T bili 1.9, AST 133, ALT 137. Patient informed of elevated liver enzymes, she states that she has Gilbert syndrome and this happened during her last episode of diverticulitis but resolved on its own. CT imaging shows acute sigmoid diverticulitis without abscess or perforation. Initial dose of Rocephin and Flagyl given in the emergency department. Patient is uncertain the exact antibiotics she has at home, but we will call her to see which medications has been prescribed. Discharge Plan Departure Patient Disposition: Home Clinical Impression: Diverticulitis Instructions: DI for Diverticulitis Activity Restrictions/Additional Instructions: Please take your antibiotics as prescribed. Follow up with your GI doctor. If your symptoms worsen, especially despite antibiotics please return to the emergency department for repeat evaluation. Medication: Sent to [facility] Cipro 500 mg twice a day for 10 days Flagyl 500 mg 3 times a day for 10 days Take Tylenol and ibuprofen as needed for pain Follow-up with your 3 days and return to emergency department if symptoms worsen Prescriptions: New hydrocodone-acetaminophen 5-325 mg tablet 1 tab PO Q8H PRN (Reason: pain) Qty: 14 0RF metronidazole 500 mg tablet 500 mg PO Q8H 7 Days Qty: 30 0RF ciprofloxacin HCl [Cipro] 500 mg tablet 500 mg PO BID Qty: 20 0RF No Action celecoxib 100 mg capsule 100 mg PO BID Qty: 180 3RF calcium-vitamin D3-vitamin K 650 mg-12.5 mcg-40 mcg tablet,chewable 1 tab PO DAILY rosuvastatin 10 mg tablet 10 mg PO DAILY Referrals: Luis Ramachandran MD [Primary Care Provider] - Stand Alone Forms: Patient Portal/API
[2024-01-07] MEDS: SODIUM CHLORIDE 0.9% 1,000 ML 1000 ML IV (04:47)
[2024-01-07 04:52] LABS: Add Manual Diff / Slide Review NO; Basophils Absolute Auto 100 /uL (0-100); Basophils Percent Auto 0.6 % (0-2); Eosinophils Absolute Auto 200 /uL (0-450); Eosinophils Percent Auto 1.2 % (2-4); Hematocrit 38.7 % (36-46); Lymphocytes Absolute Auto 2100 /uL (1100-4500); Lymphocytes Percent Auto 16.6 % (25-40); Mean Corpuscular HGB Conc 33.7 % (30-36); Mean Corpuscular Hemoglobin 29.1 PG (26-34); Mean Corpuscular Volume 86.4 fL (80-100); Monocytes Absolute Auto 1200 /uL (0-900); Monocytes Percent Auto 9.4 % (3-14); Neutrophils Absolute Auto 9300 /uL (1500-7000); Neutrophils Percent Auto 72.2 % (50-75); Platelet Count 318 X10^3/uL (150-400); Red Blood Cell Count 4.47 X10^6/uL (4.0-5.2); Red Cell Distribution Width 13.8 % (11.6-14.8); White Blood Cell Count 12.8 X10^3/uL (4.5-11.0)
[2024-01-07 04:53] LABS: Appearance Urine UA CLEAR; Bilirubin Urine UA NEGATIVE (NEGATIVE); Color Urine UA YELLOW; Glucose Urine UA NEGATIVE (Negative); Ketones Urine UA NEGATIVE (NEGATIVE); Leukocyte Esterase Urine UA 1+ (NEGATIVE); Nitrite Urine UA NEGATIVE (Negative); Occult Blood Urine UA TRACE-INTACT (Negative); Protein Urine UA TRACE (Negative)
[2024-01-07 05:05] LABS: Bacteria Urine None Seen; Culture Indicated Urine Cult Not Indicated; RBC Urine None Seen (0-5/HPF); Squamous Epithelial Cell Urine 0-1 /HPF (0-5/HPF); Urine Volume 10mL (spun); WBC Urine 0-1/HPF (0-5/HPF)
[2024-01-07 05:11] LABS: Lactate (Lactic Acid) 1.3 mmol/L (0.7-2.1)
[2024-01-07 05:12] LABS: Alanine Aminotransferase 137 IU/L (<35); Albumin 4.3 g/dL (3.5-5.0); Albumin Globulin Ratio 1.2 (1.0-2.8); Alkaline Phosphatase 57 U/L (38-126); Aspartate Aminotransferase 133 IU/L (14-36); BUN Creatinine Ratio 18.7 (6-22); Bilirubin Total 1.9 mg/dL (0.2-1.3); Blood Urea Nitrogen 17 mg/dL (7-17); Calcium 9.5 mg/dL (8.4-10.2); Carbon Dioxide 22 mmol/L (22-32); Chloride 106 mmol/L (98-107); Estimated Glomerular Filt Rate > 60 mL/min (>60); Globulin 3.7 g/dL (1.7-4.1); Glucose 133 mg/dL (80-110); HEMOLYSIS < 15 (0-50); Lipase 156 U/L (23-300); Potassium 4.2 mmol/L (3.4-5.1); Sodium 137 mmol/L (137-145)
[2024-01-07] MEDS: cefTRIAXone 1,000 MG in SODIUM CHLORIDE 0.9% 100 ML 200 MG IV (06:12)
[2024-01-07] MEDS: metroNIDAZOLE 500 MG/100 ML PIGGYBACK 100 MG IV (06:48)
== END 2024-01-07 08:03 | disposition home or self-care (01) ==
PROVIDERS: Emergency Medicine; Emergency Provider Emergency Medicine; PCP Internal Medicine
DX: K57.32 Diverticulitis of large intestine without perforation or abscess without bleeding (principal); R50.9 Fever, unspecified
CPT/HCPCS: 36415; 74177; 80053; 81001; 83605; 83690; 85025; 96361; 96365; 96367; 99284; J0696; Q9967

== ENCOUNTER → 2024-02-01 07:37 | Outpatient (CLI) | payer MEDICARE, OTHER, SELFPAY ==
[2024-02-01 08:17] LABS: Hemoglobin A1C% w Est Avg Glu 6.1 % (4.0-6.0)
[2024-02-01 08:37] LABS: Alanine Aminotransferase 27 IU/L (<35); Albumin 4.2 g/dL (3.5-5.0); Albumin Globulin Ratio 1.5 (1.0-2.8); Alkaline Phosphatase 39 U/L (38-126); Aspartate Aminotransferase 23 IU/L (14-36); BUN Creatinine Ratio 22.6 (6-22); Blood Urea Nitrogen 21 mg/dL (7-17); Calcium 9.4 mg/dL (8.4-10.2); Carbon Dioxide 28 mmol/L (22-32); Chloride 108 mmol/L (98-107); Cholesterol 197 mg/dL (140-199); Estimated Glomerular Filt Rate > 60 mL/min (>60); Globulin 2.8 g/dL (1.7-4.1); Glucose 104 mg/dL (80-110); HDL Cholesterol 50 mg/dL (40-60); HEMOLYSIS < 15 (0-50); LDL Cholesterol Calculated 119 mg/dL (<100); Potassium 4.4 mmol/L (3.4-5.1); Sodium 140 mmol/L (137-145); Triglycerides 142 mg/dL (35-150)
[2024-02-01 16:14] LABS: Microalbumin Urine Random 2.4 mg/dL (0-1.6)
[2024-02-01 16:21] LABS: Creatinine Urine Random 107.6 mg/dL; Microalbumi Creatinin Ratio Ur 22.3 ug/mg CR (<30)
== END ==
PROVIDERS: PCP Internal Medicine; Referring Provider Internal Medicine; Visit Provider Internal Medicine
DX: E11.69 Type 2 diabetes mellitus with other specified complication (principal); E78.5 Hyperlipidemia, unspecified; E78.2 Mixed hyperlipidemia; R74.01 Elevation of levels of liver transaminase levels
CPT/HCPCS: 36415; 80053; 80061; 82043; 82570; 83036

== ENCOUNTER → 2024-05-26 14:03 | Outpatient (CLI) | payer MEDICARE, OTHER, SELFPAY ==
--- NOTE | 2024-05-26 14:06 | DIAB.MNT ---
Initial Diabetes Medical Nutrition Therapy Assessment Name: Guanakito Martin Date: 05/26/24 Time: 2-245p Dx: Type II Diabetes Guanakito presents for initial DM visit. Newly dx with HgA1c in February 2023 of 6.5%. Cut out sweets and reduced carbs. Using sugar subs. Down 2# since starting Rybelsus this past week. Does not like veggies much. Thinks about food often. Looking for filling snacks. Aiming for 1000kcal per day, low kcal diet. Also, fasting in the morning for wt loss. Also, aiming for low CHO. States at the time of diagnosis was eating sweets in excess daily. Mild nausea and some satiety with low dose Rybelsus. Plans to increase after one month, though has questions about dosing and appetite. States she does not consider herself diabetic. Has been spending the last year saying I don't have diabetes. Despite this, is making changes to reduce her wt and improve nutrition. 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 Has questions about label reading and beans. Diet Recall: B: coffee, cream +/- half piece quiche 12p: chicken Caesar salad sn: HS egg with tracy or tuna in oil with tracy 5-8p: usually cooks stir rick with protein, +/- 1/3c white rice sn: nothing or popcorn or almonds with 1/4c chocolate chips Water 12oz or less, sparkling water 12oz, coffee 1-2c Anthropometrics: Ht: 61 Wt: 154# 05/11/24 Physical Activity: Walking 2-4 mi per day with dog, rowing 2x per week Self-Monitoring Blood Glucose: None Diabetes Medications: 3mg Rybelsus Pertinent Labs: HgA1c: 6.5% 02/2024 5.9% 06/2023 6.1% 01/2024 Past Medical History: (Last Reviewed 05/11/24 @ 04:50 by Luis Ramachandran MD) Age-related osteoporosis without current pathological fracture Cholelithiasis Closed left ankle fracture DM type 2 with diabetic dyslipidemia Elevated blood pressure reading without diagnosis of hypertension Elevated serum creatinine Fractures Gastric reflux History of pulmonary embolism Microalbuminuria Mixed hyperlipidemia Obesity (BMI 30.0-34.9) Patient denies significant medical history Personal history of DVT (deep vein thrombosis) Primary osteoarthritis involving multiple joints Right rotator cuff tear Nutrition Rx: Carbohydrates: Meal:30g Snack:15g Fluids: 40oz Kcal: 1200 Nutrition Diagnosis: - Nutrition and food related knowledge deficit r/t new dx of T2DM aeb hgA1c and pt report - Inadequate fluid intake r/t stage of change contemplation aeb pt report Intervention: This participant was very receptive. Provided appropriate educational handouts. Discussed the following topics: Completed intake assessment. Discussed barriers to care. Plate Method, impact of macronutrients on blood sugar, meal timing, carbohydrate counting, pairing macronutrients and spreading out carbohydrates for better blood glucose management Recommended servings for carbohydrates at meals and snacks [facility] nutrition Recipe resources online Label reading for net CHO [place] nutrition Medication management: dosing and satiety, slow titration to avoid SE Created SMART goals for patient self-care and success. Goals: Pair CHO and proteins Check out recipe websites Increase fluids to 40oz Follow-up: VESNA RIDDLE follow-up prn per pt request. Encouraged her to reach out with questions or follow-up needs. She agreed. Kristin Beckett RDN, [facility] Certified Diabetes Care and [employer] P: [phone] Thank you for this referral
== END ==
PROVIDERS: PCP Internal Medicine; Referring Provider Internal Medicine
DX: E11.69 Type 2 diabetes mellitus with other specified complication (principal); E78.5 Hyperlipidemia, unspecified; Z71.3 Dietary counseling and surveillance; Z79.84 Long term (current) use of oral hypoglycemic drugs
CPT/HCPCS: 97802

== ENCOUNTER → 2024-08-01 12:24 | Outpatient (CLI) | payer MEDICARE, OTHER, SELFPAY ==
[2024-08-01 13:32] LABS: Creatinine Urine Random 326.97 mg/dL
[2024-08-01 13:34] LABS: Hemoglobin A1C% w Est Avg Glu 5.8 % (4.0-6.0)
[2024-08-01 13:38] LABS: Microalbumin Urine Random 5.4 mg/dL (0-1.6)
[2024-08-01 13:40] LABS: BUN Creatinine Ratio 15.7 (6-22); Blood Urea Nitrogen 14 mg/dL (7-17); Calcium 8.8 mg/dL (8.4-10.2); Carbon Dioxide 26 mmol/L (22-32); Chloride 107 mmol/L (98-107); Estimated Glomerular Filt Rate > 60 mL/min (>60); Glucose 112 mg/dL (80-110); HEMOLYSIS < 15 (0-50); Potassium 3.8 mmol/L (3.4-5.1); Sodium 139 mmol/L (137-145)
== END ==
PROVIDERS: PCP Internal Medicine; Referring Provider Internal Medicine; Visit Provider Internal Medicine
DX: E11.69 Type 2 diabetes mellitus with other specified complication (principal); E78.5 Hyperlipidemia, unspecified; R03.0 Elevated blood-pressure reading, without diagnosis of hypertension; R80.9 Proteinuria, unspecified; E78.2 Mixed hyperlipidemia; K80.20 Calculus of gallbladder without cholecystitis without obstruction; R74.01 Elevation of levels of liver transaminase levels; E66.9 Obesity, unspecified; Z68.30 Body mass index [BMI] 30.0-30.9, adult
CPT/HCPCS: 36415; 80048; 82043; 82570; 83036

== ENCOUNTER → 2025-03-10 07:55 | Outpatient (CLI) | payer MEDICARE, OTHER, SELFPAY ==
[2025-03-10 09:17] LABS: Hemoglobin A1C% w Est Avg Glu 5.3 % (4.0-6.0)
[2025-03-10 09:20] LABS: Albumin 4.7 g/dL (3.5-5.0); BUN Creatinine Ratio 31.1 (6-22); Blood Urea Nitrogen 28 mg/dL (7-17); Carbon Dioxide 24 mmol/L (22-32); Chloride 104 mmol/L (98-107); Estimated Glomerular Filt Rate > 60 mL/min (>60); Glucose 90 mg/dL (70-99); HEMOLYSIS < 15 (0-50); Phosphorous 4.1 mg/dL (2.8-4.1); Potassium 4.6 mmol/L (3.4-5.1); Sodium 139 mmol/L (137-145)
[2025-03-10 09:24] LABS: Aspartate Aminotransferase 36 IU/L (14-36); BUN Creatinine Ratio 29.8 (6-22); Blood Urea Nitrogen 28 mg/dL (7-17); Carbon Dioxide 25 mmol/L (22-32); Chloride 104 mmol/L (98-107); Cholesterol 142 mg/dL (140-199); Estimated Glomerular Filt Rate > 60 mL/min (>60); Glucose 92 mg/dL (70-99); HDL Cholesterol 60 mg/dL (40-60); HEMOLYSIS < 15 (0-50); LDL Cholesterol Calculated 63 mg/dL (<100); Potassium 4.6 mmol/L (3.4-5.1); Sodium 139 mmol/L (137-145); Triglycerides 93 mg/dL (35-150)
[2025-03-10 09:37] LABS: Vitamin D 25 Hydroxy (D3) 53.3 ng/mL (30.0-100.0)
== END ==
PROVIDERS: PCP Internal Medicine; Referring Provider Internal Medicine; Visit Provider Student in an Organized Health Care Education/Training Program
DX: E11.69 Type 2 diabetes mellitus with other specified complication (principal); M81.0 Age-related osteoporosis without current pathological fracture; E78.5 Hyperlipidemia, unspecified; E78.2 Mixed hyperlipidemia
CPT/HCPCS: 36415; 80048; 80061; 80069; 82306; 83036; 84450

== ENCOUNTER 2025-04-01 21:04 | Emergency (ER) | payer MEDICARE, OTHER, SELFPAY ==
--- NOTE | 2025-04-01 21:08 | ED.FEMALEGU ---
HPI - Female Genitourinary General Chief complaint: Urogenital-Female Stated complaint: UTI thinks is going septic Time Seen by Provider: 04/01/25 21:05 History of Present Illness HPI Narrative: Patient is a 74-year-old female with a history of diabetes, hyperlipidemia, diverticulitis, comes into the ED from home for evaluation of chills/rigors, as well as urinary frequency and dysuria. Patient states that she was diagnosed with a urinary tract infection today did have a dose of oral antibiotics and Pyridium, she states that she is worried that she may be coming septic given the fact that she had a proximally 15 minutes of chills/rigors that subsided earlier today. She states that she was also febrile prior to arrival. Patient denies any other symptoms at this time. Related Data Home Medications ?Medication ?Instructions ?Recorded ?Confirmed calcium 650 mg-vitamin D3 12.5 1 tab PO DAILY 03/09/22 03/13/25 mcg-vitamin K 40 mcg chewable tablet Previous Rx's ?Medication ?Instructions ?Recorded ciprofloxacin HCl 500 mg tablet 500 mg PO BID #20 tabs 03/13/25 (Cipro) rosuvastatin 10 mg tablet 10 mg PO DAILY #90 tabs 03/13/25 celecoxib 100 mg capsule 100 mg PO BID #180 caps 03/14/25 loperamide 2 mg capsule 2 mg PO DAILY loose stool #90 caps 03/16/25 tirzepatide 10 mg/0.5 mL 10 mg (0.5 mL) SUBCUT QWEEK #2 mL 03/29/25 subcutaneous pen injector Allergies Allergy/AdvReac Type Severity Reaction Status Date / Time semaglutide (From [facility]) AdvReac Intermediate Nausea Verified 04/01/25 21:12 Review of Systems Review of Systems Narrative: General: Positive fever, chills, denies weight loss HEENT: Denies headache, eye drainage, eye irritation, head trauma, sore throat, voice change Cardiovascular: Denies any chest pain, palpitations, tachycardia Respiratory: Denies any shortness of breath, cough, wheeze, stridor GI/: Positive frequency dysuria Denies any abdominal pain, nausea, vomiting, diarrhea, bright red blood per rectum, melanotic stools, urinary retention, MSK: Denies any joint pain, muscle pains, swelling Skin: Denies any rashes, lesions, discoloration Neuro: Denies any headache, lightheadedness, dizziness, fainting, weakness Psych: Denies SI/HI Patient History Medical History (Updated 04/01/25 @ 23:04 by Murtaza Arredondo DO) Chronic diarrhea Elevated blood pressure reading without diagnosis of hypertension Microalbuminuria DM type 2 with diabetic dyslipidemia Right rotator cuff tear Elevated serum creatinine History of pulmonary embolism Personal history of DVT (deep vein thrombosis) Closed left ankle fracture Cholelithiasis Primary osteoarthritis involving multiple joints Age-related osteoporosis without current pathological fracture Mixed hyperlipidemia Fractures Gastric reflux Patient denies significant medical history Surgical History Anesthesia Tibial plateau fracture, left Tibia/fibula fracture History of bilateral breast reduction surgery History of appendectomy History of total abdominal hysterectomy and bilateral salpingo-oophorectomy Family History Father Diabetes mellitus History of heart disease Hypertension Alcohol type: wine Exam Narrative Exam Narrative: General: Cooperative, well-developed, not in acute distress HEENT: Normocephalic, atraumatic, PERRLA, normal sclera, eyelids normal Neck: Active full range of motion, atraumatic Chest: Normal to inspection, negative crepitus, no overlying erythema ecchymosis Respiratory: Normal respiratory effort, not in acute respiratory distress, clear to auscultation bilaterally negative cough, wheeze, tachypnea, rhonchi, rales Cardiology: Regular rate rhythm negative gallop, murmur, rubs GI/: No tenderness to palpation, soft, non rigid, normal to inspection, exam deferred MSK: Full active range of motion in all 4 extremities, atraumatic, no tenderness to palpation of any bony prominences Skin: No rashes or lesions noted Neuro: Alert awake oriented x3, moves all 4 extremities spontaneously, cranial nerves intact, able to answer all questions appropriately follows commands appropriately Psych: Cooperative, negative suicidal or homicidal ideations Initial Vital Signs Initial Vital Signs: Vital Signs Temperature 98.9 F 04/01/25 21:12 Pulse Rate 132 H 04/01/25 21:12 Respiratory Rate 16 04/01/25 21:12 Blood Pressure 121/70 04/01/25 21:12 Pulse Oximetry 98 04/01/25 21:12 Oxygen Delivery Method Room Air 06/29/25 21:12 Course Orders Ordered: ED Orders 04/01/25 21:20 Blood Culture Stat Complete Blood Count AUTO DIFF Stat Comprehensive Metabolic Panel Stat Lactate (Lactic Acid) Stat Lipase Stat MAG [Magnesium] Stat 04/01/25 21:30 Urine Culture Stat 04/01/25 21:38 Urinalysis and Microscopic Stat Discontinued Medications Sodium Chloride (Normal Saline 0.9%) 1,000 mls @ 1,000 mls/hr IV BOLUS ONE Stop: 04/01/25 22:13 Last Infusion: 04/01/25 23:00 Dose: Infused Documented By: Admin: 04/01/25 21:40 Dose: 1,000 mls/hr Documented By: CARISSA Ceftriaxone Sodium 1,000 mg/ (Sodium Chloride) 100 mls @ 200 mls/hr IV NOW ONE Stop: 04/01/25 21:15 Last Infusion: 04/01/25 22:16 Dose: Infused Documented By: Admin: 04/01/25 21:40 Dose: 200 mls/hr Documented By: CARISSA Vital Signs Vital signs: Vital Signs - 8 hr 04/01/25 21:12 04/01/25 23:00 Temperature 98.9 F Pulse Rate 132 H 104 H Respiratory Rate 16 14 Blood Pressure 121/70 123/63 Pulse Oximetry 98 97 Oxygen Delivery Method Room Air Room Air MDM - Female Genitourinary Differential Diagnosis Differential diagnosis: Likely urinary tract infection, cystitis and other (Electrolyte abnormality,) Lab Data 04/01/25 21:20 04/01/25 21:20 Labs: Lab Results 04/01/25 Range/Units 21:20 WBC 9.8 (4.5-11.0) X10^3/uL RBC 4.31 (4.0-5.2) X10^6/uL Hgb 12.7 (12.0-16.0) g/dL Hct 36.6 (36-46) % MCV 85.0 (80-100) fL MCH 29.5 (26-34) PG MCHC 34.7 (30-36) % RDW 13.7 (11.6-14.8) % Plt Count 158 (150-400) X10^3/uL Neut % (Auto) 88.1 H (50-75) % Lymph % (Auto) 8.7 L (25-40) % [place] % (Auto) 2.3 L (3-14) % Eos % (Auto) 0.5 L (2-4) % Baso % (Auto) 0.4 (0-2) % Neut # (Auto) 8600 H (8394-5493) /uL Lymph # (Auto) 800 L (7129-9356) /uL [place] # (Auto) 200 (0-900) /uL Eos # (Auto) 0 (0-450) /uL Baso # (Auto) 0 (0-100) /uL Sodium 138 (137-145) mmol/L Potassium 3.9 (3.4-5.1) mmol/L Chloride 106 (98-107) mmol/L Carbon Dioxide 18 L (22-32) mmol/L BUN 24 H (7-17) mg/dL Creatinine 1.04 (0.52-1.04) mg/dL Estimated GFR 57 L (>60) mL/min BUN/Creatinine Ratio 23.1 H (6-22) Glucose 123 H (70-99) mg/dL Lactate 1.4 (0.7-2.1) mmol/L Calcium 9.7 (8.4-10.2) mg/dL Magnesium 1.7 (1.6-2.3) mg/dL Total Bilirubin 1.7 H (0.2-1.3) mg/dL AST 32 (14-36) IU/L ALT 46 H (<35) IU/L Alkaline Phosphatase 42 (38-126) U/L Total Protein 7.8 (6.3-8.2) g/dL Albumin 4.6 (3.5-5.0) g/dL Globulin 3.2 (1.7-4.1) g/dL Albumin/Globulin Ratio 1.4 (1.0-2.8) Lipase 270 (23-300) U/L [facility] Narrative Medical decision making narrative: Patient is a 74-year-old female with a past medical history of hyperlipidemia hypertension diverticulitis presenting for urinary frequency dysuria as well as chills/rigors. States that she was diagnosed with a urinary tract infection had a dose of oral antibiotics and Pyridium, she states that her symptoms have improved however she presents due to the fact that she had 15 minute episode of rigors/chills that has not subsided. Also states that she noticed that she was febrile prior to arrival. She denies any other symptoms such as headache visual disturbances chest pain shortness of breath fever chills nausea vomiting abdominal pain or any other GI/ symptoms time. Patient had lab work performed here. Patient was given dose of IV Rocephin immediately upon arrival as well as 1 L normal saline. Patient without any leukocytosis, Chem panel unremarkable, creatinine normal, lactate normal we were unable to obtain a urinalysis here but patient states that she feels a lot better as well as the fact that she was given dose of IV antibiotics she feels comfortable going home following up with the primary care doctor. Patient did have blood cultures drawn here informed her that we will contact her if they are abnormal, patient is afebrile, not meeting any other sepsis sirs criteria, patient was given strict return precautions she verbalized understanding of this and agrees to being discharged home with outpatient follow up Discharge Plan Departure Patient Disposition: Home Clinical Impression: Urinary tract infection Activity Restrictions/Additional Instructions: Please continue taking your oral antibiotics please return to the emergency department immediately if your symptoms worsen Please read the discharge instructions sheet carefully and bring all papers to all doctor follow-up visits, as it may contain information that your doctor may want to see. Disease processes change and evolve, if your symptoms worsen or if you develop any new symptoms that are concerning to you please return for evaluation. Your evaluation today does not show any evidence of any life-threatening/serious illnesses requiring admission to the hospital or surgery. Please follow-up with your doctor for re-evaluation in approximately 1 day. Seek immediate medical attention for any worrisome symptoms. *If you do not have a primary care provider please contact the [facility] Resource line at [phone]. They will ask some questions about your medical history and help get you set up with a doctor in the community. Prescriptions: No Action celecoxib 100 mg capsule 100 mg PO BID Qty: 180 3RF loperamide 2 mg capsule 2 mg PO DAILY Qty: 90 0RF tirzepatide 10 mg/0.5 mL pen injector 10 mg SUBCUT QWEEK Qty: 2 11RF calcium-vitamin D3-vitamin K 650 mg-12.5 mcg-40 mcg tablet,chewable 1 tab PO DAILY rosuvastatin 10 mg tablet 10 mg PO DAILY Qty: 90 3RF ciprofloxacin HCl [Cipro] 500 mg tablet 500 mg PO BID Qty: 20 0RF Referrals: Luis Ramachandran MD [Primary Care Provider, Internal Medicine] Stand Alone Forms: Patient Portal/API
[2025-04-01 21:12] VITALS: BP 121/70; PULSE 132; RESP 16; TEMP 37.2; O2SAT 98; BMI 23.6
[2025-04-01 21:39] LABS: Add Manual Diff / Slide Review NO; Basophils Absolute Auto 0 /uL (0-100); Basophils Percent Auto 0.4 % (0-2); Eosinophils Absolute Auto 0 /uL (0-450); Eosinophils Percent Auto 0.5 % (2-4); Hematocrit 36.6 % (36-46); Hemoglobin 12.7 g/dL (12.0-16.0); Lymphocytes Absolute Auto 800 /uL (1100-4500); Lymphocytes Percent Auto 8.7 % (25-40); Mean Corpuscular HGB Conc 34.7 % (30-36); Mean Corpuscular Hemoglobin 29.5 PG (26-34); Monocytes Absolute Auto 200 /uL (0-900); Monocytes Percent Auto 2.3 % (3-14); Neutrophils Absolute Auto 8600 /uL (1500-7000); Neutrophils Percent Auto 88.1 % (50-75); Platelet Count 158 X10^3/uL (150-400); Red Blood Cell Count 4.31 X10^6/uL (4.0-5.2); Red Cell Distribution Width 13.7 % (11.6-14.8); White Blood Cell Count 9.8 X10^3/uL (4.5-11.0)
[2025-04-01] MEDS: cefTRIAXone 1,000 MG in SODIUM CHLORIDE 0.9% 100 ML 200 MG IV (21:40)
[2025-04-01] MEDS: SODIUM CHLORIDE 0.9% 1,000 ML 1000 ML IV (21:40)
[2025-04-01 22:18] LABS: Lactate (Lactic Acid) 1.4 mmol/L (0.7-2.1)
[2025-04-01 22:19] LABS: Alanine Aminotransferase 46 IU/L (<35); Albumin 4.6 g/dL (3.5-5.0); Albumin Globulin Ratio 1.4 (1.0-2.8); Alkaline Phosphatase 42 U/L (38-126); Aspartate Aminotransferase 32 IU/L (14-36); BUN Creatinine Ratio 23.1 (6-22); Bilirubin Total 1.7 mg/dL (0.2-1.3); Blood Urea Nitrogen 24 mg/dL (7-17); Calcium 9.7 mg/dL (8.4-10.2); Carbon Dioxide 18 mmol/L (22-32); Chloride 106 mmol/L (98-107); Estimated Glomerular Filt Rate 57 mL/min (>60); Globulin 3.2 g/dL (1.7-4.1); Glucose 123 mg/dL (70-99); HEMOLYSIS < 15 (0-50); Lipase 270 U/L (23-300); Magnesium 1.7 mg/dL (1.6-2.3); Potassium 3.9 mmol/L (3.4-5.1); Sodium 138 mmol/L (137-145); Total Protein 7.8 g/dL (6.3-8.2)
[2025-04-01 23:00] VITALS: BP 123/63; PULSE 104; RESP 14; O2SAT 97
== END 2025-04-01 23:21 | disposition home or self-care (01) ==
PROVIDERS: Emergency Provider Student in an Organized Health Care Education/Training Program; PCP Internal Medicine
DX: N39.0 Urinary tract infection, site not specified (principal)
CPT/HCPCS: 36415; 80053; 83605; 83690; 83735; 85025; 87040; 87086; 99284; J0696

== ENCOUNTER → 2025-04-04 12:38 | Outpatient (CLI) | payer MEDICARE, OTHER, SELFPAY ==
[2025-04-04 14:00] LABS: Hematocrit 38.6 % (36-46); Hemoglobin 12.9 g/dL (12.0-16.0); Lymphocytes Absolute Auto 1900 /uL (1100-4500); Mean Corpuscular HGB Conc 33.5 % (30-36); Mean Corpuscular Hemoglobin 28.7 PG (26-34); Mean Corpuscular Volume 85.6 fL (80-100)
[2025-04-04 14:08] LABS: INR 1.0 (0.9-1.3); Prothrombin Time 11.5 SECONDS (9.4-12.5)
[2025-04-04 14:11] LABS: PTT Partial Thromboplastin Tim 32 SECONDS (25.1-36.5)
[2025-04-04 14:16] LABS: Add Manual Diff / Slide Review SLIDE REVIEW; Platelet Count 2 X10^3/uL (150-400)
[2025-04-04 14:34] LABS: RBC Morphology Normal Morphology
== END ==
PROVIDERS: PCP Internal Medicine; Referring Provider Internal Medicine; Visit Provider Internal Medicine
DX: R23.3 Spontaneous ecchymoses (principal)
CPT/HCPCS: 36415; 85025; 85610; 85730

== ENCOUNTER 2025-04-04 14:34 | Inpatient (IN) | payer MEDICARE, OTHER, SELFPAY ==
[2025-04-04] VITALS (20 sets, daily range): BP systolic 105–183; BP diastolic 57–86; PULSE 71–87; RESP 14–19; TEMP 36.6; O2SAT 93–100; BMI 23.6
--- NOTE | 2025-04-04 14:56 | DI.CT.S_ITS ---
PROCEDURE: CT HEAD/BRAIN WO CON INDICATIONS: platelets are 2 TECHNIQUE: Noncontrast 4.5 mm thick angled axial sections acquired from the foramen magnum to the vertex, with coronal and sagittal reformats. For radiation dose reduction, the following was used: automated exposure control, adjustment of mA and/or kV according to patient size. COMPARISON: None. FINDINGS: Image quality: Diagnostic. CSF spaces: Basal cisterns are patent. No extra-axial fluid collections. The ventricles are symmetric in size and shape. Brain: No intracranial bleeds or mass effect. There is cerebral volume loss, with resultant ventricular and sulcal prominence. There are periventricular and deep white matter chronic small vessel ischemic changes. There is intracranial internal carotid artery atherosclerosis. Skull and face: Calvarium and visualized facial bones appear intact, without suspicious lesions. Sinuses: Visualized sinuses and mastoids are clear. IMPRESSION: No acute intracranial pathology. Dictated by: Paco Gunderson M.D. on 04/04/2025 at 15:19 Approved by: Paco Gnuderson M.D. on 04/04/2025 at 15:20
--- NOTE | 2025-04-04 14:57 | ED.RECABL ---
HPI - Recheck/Abnormal Lab/Rx General Chief Complaint: Recheck/Abnormal Lab/Rx Stated Complaint: Sent from PCP, low blood count Time Seen by Provider: 04/04/25 14:56 Source: patient, RN notes reviewed and old records reviewed Mode of arrival: Ambulatory Limitations: no limitations History of Present Illness HPI narrative: 74-year-old female history of dyslipidemia, diabetes with no anticoagulants presents with complaint of low platelets, petechiae and atypical bruising. Patient states she was recently here on 03/25/2025 with UTI with rigors and concern for sepsis had started on Septra received Rocephin, fluids workup and was ultimately discharged home completed Septra x3 days. Patient states she was started to notice little bit atypical bruising and then petechiae. She was noticed spots on her tongue and inside her lips, had what appeared to be a little bit of a bug bite she was scratching developed some bruising and small petechiae as well as on her extremities and torso. Patient has not appreciated any sandra bleeding. She denies headaches, no chest pain, no shortness of breath, no nausea or vomiting, no issues with bowel movements no black or bloody stools. States she still has a little bit of frequency but states her urinary symptoms have overall resolved. She has not appreciate any hematuria. She has not had issues with platelets in her past. Had outpatient labs ordered by her primary care and platelets were 2. Subsequent repeat of labs confirms this. Patient notes no other brand new medications, she was had multiple orthopedic surgeries, total abdominal hysterectomy with BSO, did have a prior PE and DVT after a tibial plateau fracture remotely. Does not take any anticoagulants currently. Home medications are currently Tylenol, famotidine, statin, monjourno IM. Patient's primary care physician is Dr. Ramachandran. Related Data Home Medications ?Medication ?Instructions ?Recorded ?Confirmed calcium 650 mg-vitamin D3 12.5 1 tab PO DAILY 03/09/22 03/13/25 mcg-vitamin K 40 mcg chewable tablet Previous Rx's ?Medication ?Instructions ?Recorded ciprofloxacin HCl 500 mg tablet 500 mg PO BID #20 tabs 03/13/25 (Cipro) rosuvastatin 10 mg tablet 10 mg PO DAILY #90 tabs 03/13/25 celecoxib 100 mg capsule 100 mg PO BID #180 caps 03/14/25 loperamide 2 mg capsule 2 mg PO DAILY loose stool #90 caps 03/16/25 tirzepatide 10 mg/0.5 mL 10 mg (0.5 mL) SUBCUT QWEEK #2 mL 03/29/25 subcutaneous pen injector Allergies Allergy/AdvReac Type Severity Reaction Status Date / Time semaglutide (From [facility]) AdvReac Intermediate Nausea Verified 04/04/25 14:41 Review of Systems Review of Systems ROS Unobtainable: All systems reviewed & are unremarkable except as noted in HPI and below Patient History Medical History Chronic diarrhea Elevated blood pressure reading without diagnosis of hypertension Microalbuminuria DM type 2 with diabetic dyslipidemia Right rotator cuff tear Elevated serum creatinine History of pulmonary embolism Personal history of DVT (deep vein thrombosis) Closed left ankle fracture Cholelithiasis Primary osteoarthritis involving multiple joints Age-related osteoporosis without current pathological fracture Mixed hyperlipidemia Fractures Gastric reflux Patient denies significant medical history Surgical History Anesthesia Tibial plateau fracture, left Tibia/fibula fracture History of bilateral breast reduction surgery History of appendectomy History of total abdominal hysterectomy and bilateral salpingo-oophorectomy Family History Father Diabetes mellitus History of heart disease Hypertension Social History Smoking Status: Unknown if ever smoked Smoking Status: Unknown if ever smoked alcohol intake frequency: holidays/special occasions only Alcohol type: wine Exam Narrative Exam Narrative: GEN: well nourished, well appearing female, alert and oriented x 3, patient appears to be in mild distress. HEENT: Atraumatic, pupils are equal round reactive to light, extraocular movements are intact, nares are clear, TMs are clear with no fluid, there is no conjunctival pallor. Throat is clear without any exudates, erythema, tonsillar enlargement or uvular deviation, patient has some petechiae and small areas of ecchymosis on her upper lip and tongue. HEART: Regular rate and rhythm without murmur, clicks, rubs. No carotid bruits, pulses are equal in upper and lower extremities LUNGS:Lungs clear to auscultation, no wheezes, rales, crackles, chest moves symmetrically ABD:bowel sounds normal, soft, non-tender, no guarding, rebound, rigidity, no masses noted, no hepatosplenomegaly :No CVA tenderness MSCL: Non-tender, no muscle atrophy, muscles strength 5/5 upper and lower extremities, full range of motion, normal gait NEURO:CN 2-12 intact, sensation normal. SKIN: Patient was petechiae of her upper and lower extremities, torso, she was some smaller areas of ecchymosis but no large areas of ecchymosis or hematoma. No active bleeding or oozing. Initial Vital Signs Initial Vital Signs: Vital Signs Temperature 97.9 F 04/04/25 14:35 Pulse Rate 87 04/04/25 14:35 Respiratory Rate 14 04/04/25 14:35 Blood Pressure 183/77 H 04/04/25 14:35 Pulse Oximetry 99 04/04/25 14:35 Oxygen Delivery Method Room Air 04/04/25 14:35 Course Orders Ordered: ED Orders 04/04/25 14:50 CBC Auto Diff [Complete Blood Count AUTO DIFF] Stat CMP [Comprehensive Metabolic Panel] Stat Platelets Stat Type and Screen Stat 04/04/25 14:56 CT head/brain wo con Stat 04/04/25 15:42 TSH w/ Reflex to FT4 Stat 04/04/25 15:45 Urine Microscopic Stat Atorvastatin Calcium (Atorvastatin 20 Mg Tablet) 20 mg PO BEDTIME RASHEL Dexamethasone (Dexamethasone 10 Mg/Ml Vial) 10 mg PO DAILY RASHEL Stop: 04/07/25 10:00 Sodium Chloride (Normal Saline 0.9%) 1,000 mls @ 50 mls/hr IV CONT RASHEL Naloxone HCl (Naloxone 0.4 Mg/Ml Vial) 0.2 mg IV Q2MIN PRN PRN Reason: Opiate Reversal Discontinued Medications Dexamethasone (Dexamethasone 10 Mg/Ml Vial) 40 mg PO NOW ONE Stop: 04/04/25 17:45 Last Admin: 04/04/25 18:21 Dose: 40 mg Documented By: Immune Globulin 55 gm/ (Miscellaneous) 550 mls @ 0 mls/hr IV NOW ONE Stop: 04/04/25 18:01 Last Admin: 04/04/25 18:25 Dose: 16.5 mls/hr Documented By: Vital Signs Vital signs: Vital Signs - 8 hr 04/04/25 14:35 04/04/25 14:38 04/04/25 14:39 Temperature 97.9 F Pulse Rate 87 85 Respiratory Rate 14 Blood Pressure 183/77 H 183/77 H Pulse Oximetry 99 98 Oxygen Delivery Method Room Air 04/04/25 14:39 04/04/25 15:16 04/04/25 15:16 Temperature Pulse Rate 83 71 Respiratory Rate 16 Blood Pressure 151/62 H Pulse Oximetry 98 100 Oxygen Delivery Method Room Air 04/04/25 15:30 04/04/25 15:30 04/04/25 15:49 Temperature Pulse Rate 78 Respiratory Rate Blood Pressure 114/66 143/63 H Pulse Oximetry 95 Oxygen Delivery Method 04/04/25 15:49 04/04/25 16:00 04/04/25 16:00 Temperature Pulse Rate 71 75 Respiratory Rate Blood Pressure 116/73 Pulse Oximetry 99 96 Oxygen Delivery Method 04/04/25 16:30 04/04/25 16:30 Temperature Pulse Rate 85 87 Respiratory Rate 16 Blood Pressure 105/57 L Pulse Oximetry 94 95 Oxygen Delivery Method Room Air MDM - Recheck/Abnormal Lab/Rx Lab Data 04/04/25 14:50 04/04/25 14:50 Labs: Lab Results 04/04/25 04/04/25 04/04/25 Range/Units 14:50 15:42 15:45 WBC 5.8 (4.5-11.0) X10^3/uL RBC 4.39 (4.0-5.2) X10^6/uL Hgb 12.6 (12.0-16.0) g/dL Hct 38.1 (36-46) % MCV 86.9 (80-100) fL MCH 28.8 (26-34) PG MCHC 33.2 (30-36) % RDW 13.9 (11.6-14.8) % Plt Count 2 L* (150-400) X10^3/uL Neut % (Auto) 56.1 (50-75) % Lymph % (Auto) 32.2 (25-40) % [place] % (Auto) 9.3 (3-14) % Eos % (Auto) 1.7 L (2-4) % Baso % (Auto) 0.7 (0-2) % Neut # (Auto) 3200 (6944-7781) /uL Lymph # (Auto) 1900 (5641-2476) /uL [place] # (Auto) 500 (0-900) /uL Eos # (Auto) 100 (0-450) /uL Baso # (Auto) 0 (0-100) /uL Platelet Estimate Decreased on smear RBC Morphology Normal morphology Sodium 137 (137-145) mmol/L Potassium 4.0 (3.4-5.1) mmol/L Chloride 106 (98-107) mmol/L Carbon Dioxide 20 L (22-32) mmol/L BUN 20 H (7-17) mg/dL Creatinine 1.13 H (0.52-1.04) mg/dL Estimated GFR 51 L (>60) mL/min BUN/Creatinine Ratio 17.7 (6-22) Glucose 84 (70-99) mg/dL Calcium 9.6 (8.4-10.2) mg/dL Total Bilirubin 1.0 (0.2-1.3) mg/dL AST 35 (14-36) IU/L ALT 47 H (<35) IU/L Alkaline Phosphatase 39 (38-126) U/L Total Protein 7.8 (6.3-8.2) g/dL Albumin 4.6 (3.5-5.0) g/dL Globulin 3.2 (1.7-4.1) g/dL Albumin/Globulin Ratio 1.4 (1.0-2.8) TSH 3.68 (0.47-4.68) uIU/mL Urine RBC 1-5/hpf (0-5/HPF) Urine WBC None seen (0-5/HPF) Ur Squamous Epith Cells None seen (0-5/HPF) Urine Bacteria None seen (None) Ur Culture Indicated? Cult not indicated Vol Urine Centrifuged 10ml (spun) Blood Type A Positive Antibody Screen Negative Urine Dip Bedside Urine Glucose Negative Bedside Urine Bilirubin - Negative Bedside Urine Ketone - Negative Urine Specific [place] 1.010 Bedside Urine Occult Blood ++ Bedside Urine pH 6.0 Bedside Urine Protein - Negative Bedside Urine Urobilinogen - Negative Bedside Urine Nitrite - Negative Bedside Urine Leukocytes - Negative Esterase MDM Narrative Medical decision making narrative: 74-year-old female with platelets that are to with petechiae and some bruising no sandra bleeding appreciated. Patient did have a recent UTI was treated with Septra or Bactrim which she was completed recently discussed this could be potential source of possible ITP. Platelets were 158 on 04/01/2025 were 318 on last labs available to me on January of 2024. Patient was a white count of 5.8 hemoglobin 12.6. Platelets are confirmed to comparison earlier today. Coags negative. Creatinine is 1.13, prior creatinine is 1.04. CO2 is 20 BUN 20, electrolytes are appropriate. Glucose is 84, LFTs are negative ALT is 47, alk-phos is 39. TSH is 3.[address] noncontrast is negative. Urine, 1 5 red cells no white cells no squamous no bacteria. Positive for blood no nitrates/no leuks. Platelets were ordered as platelets are less than 10. Spoke with Oncology/Hematology at [facility]. Paged at [phone], spoke with . Spoke with coordinator at @ [phone], will page out their hematology/oncology. Spoke with Dr. Herring, hematology oncology [facility] recommends IVIG 1 grams/kilogram dose, dexamethasone 40 mg daily x4 days he states they typically give it orally but can also be IV. If Hospitalist is comfortable can stay here if not to call back if not. Discussed no hem/oncology here. Does not recommend platelets unless patient is actively bleeding. Spoke with Dr. Blandon, hospitalist here at [facility], relayed Hematology/Oncology recommendations. He feels comfortable keeping patient here I did talk with pharmacy we have IVIG and this is ordered as well as dexamethasone 40mg. Discussed did not recommend platelets unless actively bleeding. They were ordered as they come from [place]. Discharge Plan Departure Patient Disposition: Admitted As Inpatient Clinical Impression: Acute ITP Admit Date/Time: 04/04/25 18:04 Admit Provider: Adina Blandon
[2025-04-04 15:04] LABS: Add Manual Diff / Slide Review NO; Hematocrit 38.1 % (36-46); Hemoglobin 12.6 g/dL (12.0-16.0); Lymphocytes Absolute Auto 1900 /uL (1100-4500); Mean Corpuscular HGB Conc 33.2 % (30-36); Mean Corpuscular Hemoglobin 28.8 PG (26-34); Mean Corpuscular Volume 86.9 fL (80-100)
[2025-04-04 15:07] LABS: Platelet Count 2 X10^3/uL (150-400)
[2025-04-04 15:17] LABS: Alanine Aminotransferase 47 IU/L (<35); Albumin 4.6 g/dL (3.5-5.0); Albumin Globulin Ratio 1.4 (1.0-2.8); Alkaline Phosphatase 39 U/L (38-126); Blood Urea Nitrogen 20 mg/dL (7-17); Calcium 9.6 mg/dL (8.4-10.2); Carbon Dioxide 20 mmol/L (22-32); Chloride 106 mmol/L (98-107); Estimated Glomerular Filt Rate 51 mL/min (>60); Globulin 3.2 g/dL (1.7-4.1); Glucose 84 mg/dL (70-99); HEMOLYSIS < 15 (0-50); Potassium 4.0 mmol/L (3.4-5.1); Sodium 137 mmol/L (137-145); Total Protein 7.8 g/dL (6.3-8.2)
[2025-04-04 15:28] LABS: RBC Morphology Normal Morphology
[2025-04-04 16:25] LABS: Culture Indicated Urine Cult Not Indicated
[2025-04-04 16:50] LABS: TSH w/ Reflex to FT4 3.68 uIU/mL (0.47-4.68)
--- NOTE | 2025-04-04 18:19 | P.HP_ITS ---
History of Present Illness History of Present Illness Date Patient Seen: 04/04/25 Time Patient Seen: 18:20 Chief complaint: Sent from PCP, low blood count Narrative: This is a 74-year-old female, patient of Dr. Ramachandran with a history of chronic diarrhea, diabetes mellitus type 2, pulmonary embolism/DVT, osteoarthritis, osteoporosis and gastric reflux who presents from her primary doctor's office with a platelets of 2. She had been successfully treated in the ED for UTI with ceftriaxone and oral Bactrim on 04/01. She noted bruising and petechia starting 2 days ago so called her doctor and had the CBC done. Repeat platelets here are again two. This is presumed to be related to the Bactrim? Per discussions with Hematology at [facility] she will be treated with IVIG 1 grams/kilogram IV and dexamethasone 40 mg daily for 4 days. Platelets would not usually be given at this point is that is usually not successful and is counterproductive in this type of illness. [facility] Medical History Chronic diarrhea Elevated blood pressure reading without diagnosis of hypertension Microalbuminuria DM type 2 with diabetic dyslipidemia Right rotator cuff tear Elevated serum creatinine History of pulmonary embolism Personal history of DVT (deep vein thrombosis) Closed left ankle fracture Cholelithiasis Primary osteoarthritis involving multiple joints Age-related osteoporosis without current pathological fracture Mixed hyperlipidemia Fractures Gastric reflux Patient denies significant medical history Surgical History Anesthesia Tibial plateau fracture, left Tibia/fibula fracture History of bilateral breast reduction surgery History of appendectomy History of total abdominal hysterectomy and bilateral salpingo-oophorectomy Family History Father Diabetes mellitus History of heart disease Hypertension Social History Smoking Status: Unknown if ever smoked Meds Home Medications and Allergies Home Medications ?Medication ?Instructions ?Recorded ?Confirmed ?Type calcium 650 mg-vitamin D3 12.5 1 tab PO DAILY 03/09/22 03/13/25 History mcg-vitamin K 40 mcg chewable tablet ciprofloxacin HCl 500 mg tablet 500 mg PO BID #20 tabs 03/13/25 03/13/25 Rx (Cipro) rosuvastatin 10 mg tablet 10 mg PO DAILY #90 tabs 03/0403/13/25 Rx celecoxib 100 mg capsule 100 mg PO BID #180 caps 03/04 10/28 Rx loperamide 2 mg capsule 2 mg PO DAILY loose stool #9 0 caps 03/16/25 Rx tirzepatide 10 mg/0.5 mL 10 mg (0.5 mL) SUBCUT QWEEK #2 mL 03/29/25 Rx subcutaneous pen injector Allergies Allergy/AdvReac Type Severity Reaction Status Date / Time semaglutide (From [facility]) AdvReac Intermediate Nausea Verified 04/04/25 14:41 Review of Systems Review of Systems Narrative: Positive for ecchymoses and petechiae with recently resolved UTI symptoms. Negative for fevers, chills, sweats, dysuria, bleeding, rashes other than the bruising, chest pain, abdominal pain, shortness breast, vomiting, headaches, neurologic symptoms. Exam Vital Signs (past 8 hours): - 04/04/25 14:35 04/04/25 14:38 04/04/25 14:39 Temperature 97.9 F Pulse Rate 87 85 Respiratory Rate 14 Blood Pressure 183/77 H 183/77 H Pulse Oximetry 99 98 Oxygen Delivery Method Room Air 04/04/25 14:39 04/04/25 15:16 04/04/25 15:16 Temperature Pulse Rate 83 71 Respiratory Rate 16 Blood Pressure 151/62 H Pulse Oximetry 98 100 Oxygen Delivery Method Room Air 04/04/25 15:30 04/04/25 15:30 04/04/25 15:49 Temperature Pulse Rate 78 Respiratory Rate Blood Pressure 114/66 143/63 H Pulse Oximetry 95 Oxygen Delivery Method 04/04/25 15:49 04/04/25 16:00 04/04/25 16:00 Temperature Pulse Rate 71 75 Respiratory Rate Blood Pressure 116/73 Pulse Oximetry 99 96 Oxygen Delivery Method 04/04/25 16:30 04/04/25 16:30 Temperature Pulse Rate 85 87 Respiratory Rate 16 Blood Pressure 105/57 L Pulse Oximetry 94 95 Oxygen Delivery Method Room Air Oxygen Delivery Method Room Air Narrative Exam Narrative: Alert and oriented x3. No apparent distress. Sclerae are pink and nonicteric Pupils are equally round and reactive to light and accommodation Extraocular muscles are intact Throat looks normal with 1 fairly large ecchymosis on the anterior tongue and 1 on the right upper lip. No lymph nodes are felt head, neck, supraclavicular area There is no thyromegaly JVD is less than 6 cm No carotid bruits are heard Heart is regular rate and rhythm without murmur Lungs are clear to auscultation bilaterally Abdomen is soft, bowel sounds positive, nontender, no organomegaly Extremities have no ankle edema Neurologic exam: Cranial nerves 2-12 test intact. There is no tremor. Motor function is 5/5 throughout. Balance is normal. Skin exam is notable for multiple small areas of petechia on the abdomen, forearms and lower legs. Less frequent are the larger ecchymotic areas. Objective Labs 04/04/25 14:50 04/04/25 14:50 Labs: Laboratory Results - last 24 hr 04/04/25 04/04/25 04/04/25 14:50 15:42 15:45 WBC 5.8 RBC 4.39 Hgb 12.6 Hct 38.1 MCV 86.9 MCH 28.8 MCHC 33.2 RDW 13.9 Plt Count 2 L* Neut % (Auto) 56.1 Lymph % (Auto) 32.2 [place] % (Auto) 9.3 Eos % (Auto) 1.7 L Baso % (Auto) 0.7 Neut # (Auto) 3200 Lymph # (Auto) 1900 [place] # (Auto) 500 Eos # (Auto) 100 Baso # (Auto) 0 Platelet Estimate Decreased on smear RBC Morphology Normal morphology Sodium 137 Potassium 4.0 Chloride 106 Carbon Dioxide 20 L BUN 20 H Creatinine 1.13 H Estimated GFR 51 L BUN/Creatinine Ratio 17.7 Glucose 84 Calcium 9.6 Total Bilirubin 1.0 AST 35 ALT 47 H Alkaline Phosphatase 39 Total Protein 7.8 Albumin 4.6 Globulin 3.2 Albumin/Globulin Ratio 1.4 TSH 3.68 Urine RBC 1-5/hpf Urine WBC None seen Ur Squamous Epith Cells None seen Urine Bacteria None seen Ur Culture Indicated? Cult not indicated Vol Urine Centrifuged 10ml (spun) Blood Type A Positive Antibody Screen Negative Assessment & Plan Assessment & Plan narrative: This is a 74-year-old female, patient of Dr. Ramachandran with a history of chronic diarrhea, diabetes mellitus type 2, pulmonary embolism/DVT, osteoarthritis, osteoporosis and gastric reflux who presents from her primary doctor's office with a platelets of 2. She had been successfully treated in the ED for UTI with ceftriaxone and oral Bactrim on 04/01. She noted bruising and petechia starting 2 days ago so called her doctor and had the CBC done. Immune thrombocytopenia -per discussions with [facility]yer hematology she will be treated with IVIG 1 g per kg x1 and dexamethasone 40 mg p.o. daily for 4 days. -consider platelet transfusion but likely not effective in this setting. -relationship to recent sulfa antibiotic use is suspicious. Recent urinary tract infection -symptoms resolved with antibiotics Chronic diarrhea -use loperamide as needed Hyperlipidemia -continue rosuvastatin. History of PE/DVT -holding Lovenox/heparin and SCD for today. -resume prophylaxis as soon as platelet recovery is sustained. 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 He is a retired emergency doctor. Anticoagulation is contraindicated at this early point in ITP but should be reconsidered once the platelets are recovering due to her history of PE/DVT. SCD are also contraindicated due to the platelets of 2 but should also be reconsidered once the platelets are recovering. Time-Based Coding :: [TOTAL MINUTES] spent with patient and on the chart (including review of chart, obtaining history, exam, reviewing outside data, placing orders, documenting exam and treatment plan, and counseling patient) on [DATE].
[2025-04-04] MEDS: DEXAMETHASONE 10 MG/ML VIAL 40 MG PO (18:21)
[2025-04-04] MEDS: ISOOSMOTIC VEHICLE IV (18:25)
[2025-04-04] MEDS: GLY IV (18:25)
[2025-04-04] MEDS: IMMUN GLOB IV (18:25)
[2025-04-04] MEDS: IGA OV50 IV (18:25)
--- NOTE | 2025-04-04 19:19 | PC.NURSE ---
No transfusion reaction to IGG
--- NOTE | 2025-04-04 22:45 | PC.NURSE ---
Immune Globulin Intravenous (Human) 10% Liquid Dose 20 g (200ml) Started at 2245, 66 ml/hr
[2025-04-04] MEDS: ACETAMINOPHEN 325 MG TABLET 975 MG PO (23:50)
--- NOTE | 2025-04-04 23:51 | PC.NURSE ---
Pt A&Ox4. Ambulates independently. Currently infusion of Immune Globulin running. Will continue to monitor.
[2025-04-05] VITALS (16 sets, daily range): BP systolic 108–150; BP diastolic 57–73; PULSE 62–88; RESP 16–20; TEMP 36.4–36.8; O2SAT 96–99; BMI 23.6
--- NOTE | 2025-04-05 00:47 | PC.NURSE ---
Immune Globulin Intravenous (Human) 10% Liquid Dose 20 g (200ml) Titrated 2350, 100 ml/hr
--- NOTE | 2025-04-05 01:14 | INF.NOTE ---
Immune Globulin Intravenous (Human) 10% Liquid Dose 20 g (200ml) Completed 200ml, total infused 350 ml. Started last 200 ml vial at this time. Continued at 100 ml/hr
--- NOTE | 2025-04-05 03:20 | PC.NURSE ---
Immune Globulin Intravenous (Human) 10% Liquid Dose 20 g (200ml) Completed last vial total infusion of 550ml.
[2025-04-05] MEDS: SODIUM CHLORIDE 0.9% 1,000 ML 50 ML IV (04:18)
[2025-04-05] MEDS: ACETAMINOPHEN 325 MG TABLET 975 MG PO (07:53)
[2025-04-05 08:11] LABS: Add Manual Diff / Slide Review NO; Hematocrit 38.6 % (36-46); Hemoglobin 13.0 g/dL (12.0-16.0); Lymphocytes Absolute Auto 700 /uL (1100-4500); Mean Corpuscular HGB Conc 33.8 % (30-36); Mean Corpuscular Hemoglobin 29.3 PG (26-34); Mean Corpuscular Volume 86.6 fL (80-100)
[2025-04-05 08:15] LABS: Platelet Count 12 X10^3/uL (150-400)
--- NOTE | 2025-04-05 08:23 | PM.PN.1 ---
Subjective Subjective Interval history: S: She was doing well today. Platelet count has increased to 20,000. No signs of bleeding. She received Decadron and IVIG yesterday. Exam Vital Signs (past 8 hours): - 04/05/25 01:10 04/05/25 01:11 04/05/25 01:11 Temperature Pulse Rate 85 82 Respiratory Rate Blood Pressure 139/64 Pulse Oximetry 98 99 Oxygen Delivery Method Room Air Oxygen Flow Rate 04/05/25 03:35 04/05/25 03:36 04/05/25 03:36 Temperature 97.8 F Pulse Rate 73 76 Respiratory Rate 17 Blood Pressure 132/66 Pulse Oximetry 98 98 Oxygen Delivery Method Oxygen Flow Rate 04/05/25 04:36 04/05/25 05:16 Temperature 97.8 F Pulse Rate 76 Respiratory Rate 16 Blood Pressure 132/66 Pulse Oximetry 97 Oxygen Delivery Method Room Air Oxygen Flow Rate 0 Oxygen Delivery Method Room Air Oxygen Flow Rate 0 Narrative Exam Narrative: NAD, alert and oriented. Fluent speech. Lungs are clear, normal rate and effort. Heart is regular, no murmur gallop or rub. Abdomen is soft, non distended. Extremities are free of edema. Objective Labs 04/05/25 08:00 04/04/25 14:50 Labs: Laboratory Results - last 24 hr 04/04/25 04/04/25 04/04/25 14:50 15:42 15:45 WBC 5.8 RBC 4.39 Hgb 12.6 Hct 38.1 MCV 86.9 MCH 28.8 MCHC 33.2 RDW 13.9 Plt Count 2 L* Neut % (Auto) 56.1 Lymph % (Auto) 32.2 [place] % (Auto) 9.3 Eos % (Auto) 1.7 L Baso % (Auto) 0.7 Neut # (Auto) 3200 Lymph # (Auto) 1900 [place] # (Auto) 500 Eos # (Auto) 100 Baso # (Auto) 0 Platelet Estimate Decreased on smear RBC Morphology Normal morphology Sodium 137 Potassium 4.0 Chloride 106 Carbon Dioxide 20 L BUN 20 H Creatinine 1.13 H Estimated GFR 51 L BUN/Creatinine Ratio 17.7 Glucose 84 Calcium 9.6 Total Bilirubin 1.0 AST 35 ALT 47 H Alkaline Phosphatase 39 Total Protein 7.8 Albumin 4.6 Globulin 3.2 Albumin/Globulin Ratio 1.4 TSH 3.68 Urine RBC 1-5/hpf Urine WBC None seen Ur Squamous Epith Cells None seen Urine Bacteria None seen Ur Culture Indicated? Cult not indicated Vol Urine Centrifuged 10ml (spun) Blood Type A Positive Antibody Screen Negative 04/05/25 08:00 WBC 3.2 L RBC 4.45 Hgb 13.0 Hct 38.6 MCV 86.6 MCH 29.3 MCHC 33.8 RDW 13.8 Plt Count 12 L* Neut % (Auto) 77.3 H D Lymph % (Auto) 20.5 L [place] % (Auto) 1.7 L Eos % (Auto) 0.1 L Baso % (Auto) 0.4 Neut # (Auto) 2500 Lymph # (Auto) 700 L [place] # (Auto) 100 Eos # (Auto) 0 Baso # (Auto) 0 Platelet Estimate RBC Morphology Sodium Potassium Chloride Carbon Dioxide BUN Creatinine Estimated GFR BUN/Creatinine Ratio Glucose Calcium Total Bilirubin AST ALT Alkaline Phosphatase Total Protein Albumin Globulin Albumin/Globulin Ratio TSH Urine RBC Urine WBC Ur Squamous Epith Cells Urine Bacteria Ur Culture Indicated? Vol Urine Centrifuged Blood Type Antibody Screen [facility] Medical History Chronic diarrhea Elevated blood pressure reading without diagnosis of hypertension Microalbuminuria DM type 2 with diabetic dyslipidemia Right rotator cuff tear Elevated serum creatinine History of pulmonary embolism Personal history of DVT (deep vein thrombosis) Closed left ankle fracture Cholelithiasis Primary osteoarthritis involving multiple joints Age-related osteoporosis without current pathological fracture Mixed hyperlipidemia Fractures Gastric reflux Patient denies significant medical history Surgical History Anesthesia Tibial plateau fracture, left Tibia/fibula fracture History of bilateral breast reduction surgery History of appendectomy History of total abdominal hysterectomy and bilateral salpingo-oophorectomy Family History Father Diabetes mellitus History of heart disease Hypertension Social History household members: family Smoking Status: Never smoker Assessment & Plan Assessment & Plan narrative: 1. 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 Platelets up to 20 today. -discussed with Dr. Tee at [facility]. We will give Decadron 40 orally today and IVIG 55 g today. We will stop IVIG when she crosses 30,000. We will plan on extended lower dose of steroids and outpatient follow up with Dr. Tee.. This likely relates to the Bactrim dosing. 2. Recent urinary tract infection, stable. -symptoms resolved with antibiotics 3. Chronic diarrhea, stable. -use loperamide as needed 4. Hyperlipidemia, stable. -continue rosuvastatin. 5. History of PE/DVT, stable. This is currently not active. -holding Lovenox/heparin and SCD for today. ALFREDO: 04/06. Anticoagulation is contraindicated at this early point in ITP but should be reconsidered once the platelets are recovering due to her history of PE/DVT. SCD are also contraindicated due to the platelets of 2 but should also be reconsidered once the platelets are recovering. Time-Based Coding :: [TOTAL MINUTES] spent with patient and on the chart (including review of chart, obtaining history, exam, reviewing outside data, placing orders, documenting exam and treatment plan, and counseling patient) on [DATE]. Quality VTE Deep Vein Thrombosis/Pulmonary Embolism Present on Admission: No
[2025-04-05] MEDS: ISOOSMOTIC VEHICLE IV (11:16)
[2025-04-05] MEDS: GLY IV (11:16)
[2025-04-05] MEDS: IGA OV50 IV (11:16)
[2025-04-05] MEDS: IMMUN GLOB IV (11:16)
[2025-04-05] MEDS: DEXAMETHASONE 10 MG/ML VIAL 40 MG PO (11:31)
--- NOTE | 2025-04-05 12:11 | CM.DANOTE ---
Initial DCP Assessment Note Pt is a 74 yo female, resident of [place], admitted for management of Immune thrombocytopenia with recent UTI. PCP: Luis Ramachandran Payer: MORAIMA/Marizol Reviewed chart, pt discussed in multidisciplinary rounds this morning. ALFREDO 04/06. 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 Patient is at functional and cognitive baseline today, walking the halls. No barriers identified at this time to patient's safe discharge home w/family to assist; close outpatient f/u recommended. Social work team will plan to follow clinical course closely in case any DC needs or concerns arise. DON Dumont Discharge Planning/Care Management CM Discharge Assessment Start: 04/04/25 18:50 Freq: Status: Active Protocol: Document 04/05/25 11:46 OSCAR (Rec: 04/05/25 12:11 OSCAR [id number]) Discharge Planning Assessment Assigned Discharge DON [employer] DPOA/Assigned Blu Rosas, spouse Designee Name Contact Information [phone] Advance Directives? Yes Advance Directives No on File History Provided By Patient Prior Living House Arrangements Household Members family Type of Drives own vehicle transporation used prior to admit Independent with ADL Yes 's Is patient alert and Yes oriented? Comment Independent Comment Home Barriers to No Discharge Comment Home w/family Discharge Plan Home Transportation Family Arrangement
[2025-04-05] MEDS: OXYCODONE IR 5 MG TABLET PO (18:22)
[2025-04-05] MEDS: ATORVASTATIN 20 MG TABLET PO (21:18)
[2025-04-06] MEDS: DEXAMETHASONE 10 MG/ML VIAL 40 MG PO (08:17)
[2025-04-06 08:19] LABS: Add Manual Diff / Slide Review NO; Hematocrit 35.7 % (36-46); Hemoglobin 12.2 g/dL (12.0-16.0); Lymphocytes Absolute Auto 1400 /uL (1100-4500); Mean Corpuscular HGB Conc 34.1 % (30-36); Mean Corpuscular Hemoglobin 29.0 PG (26-34); Mean Corpuscular Volume 85.2 fL (80-100); Platelet Count 66 X10^3/uL (150-400)
[2025-04-06 09:23] LABS: Blood Urea Nitrogen 22 mg/dL (7-17); Calcium 9.3 mg/dL (8.4-10.2); Carbon Dioxide 18 mmol/L (22-32); Chloride 110 mmol/L (98-107); Estimated Glomerular Filt Rate 59 mL/min (>60); Glucose 133 mg/dL (70-99); HEMOLYSIS < 15 (0-50); Potassium 4.0 mmol/L (3.4-5.1); Sodium 139 mmol/L (137-145)
[2025-04-06 10:00] VITALS: BP 121/62; PULSE 68; RESP 17; TEMP 36.2; O2SAT 100
--- NOTE | 2025-04-06 10:14 | P.DS_ITS ---
History of Present Illness History of Present Illness Chief complaint: Sent from PCP, low blood count Narrative: From H&P: This is a 74-year-old female, patient of Dr. Ramachandran with a history of chronic diarrhea, diabetes mellitus type 2, pulmonary embolism/DVT, osteoarthritis, osteoporosis and gastric reflux who presents from her primary doctor's office with a platelets of 2. She had been successfully treated in the ED for UTI with ceftriaxone and oral Bactrim on 04/01. She noted bruising and petechia starting 2 days ago so called her doctor and had the CBC done. Repeat platelets here are again two. This is presumed to be related to the Bactrim? Per discussions with Hematology at [facility] she will be treated with IVIG 1 grams/kilogram IV and dexamethasone 40 mg daily for 4 days. Platelets would not usually be given at this point is that is usually not successful and is counterproductive in this type of illness. Discharge Providers Provider Date of admission: 04/04/25 18:04 Discharge Date: 04/06/25 Primary care physician: Luis Ramachandran MD Consults: Discussed with IVÁN will in ED, and Benjamín will while in hospital. We will follow up with [facility] Hematology. Discharge provider: Shaquille Mcnamara MD Summary Hospital Course Discharge Diagnosis: 1. 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 Platelets up to 20 today. 2. Recent urinary tract infection, stable. 3. Chronic diarrhea, stable. 4. Hyperlipidemia, stable. 5. History of PE/DVT, stable. This is currently not active. Hospital Course: She was admitted with severe thrombocytopenia consistent with ITP after oral antibiotics with Bactrim for a urinary tract infection. Her initial platelet count was 2 and she was treated with steroids and IVIG after discussions with [facility] hematology while she was in the ED. her platelets and crit improved to 22 on the next day of her admission and she was given additional dose of IVIG and Decadron. On the day of discharge, her platelet count had increased to 55,000. She was given Decadron, and felt to be stable for discharge. She will receive a 4th dose of oral Decadron at home, 40 mg and then started on prednisone 50 mg a day. She will see Dr. Tee of [facility] Hematology in the next 7-14 days. We anticipate a slow prednisone taper. She will avoid rigors activities or Heights for the next week. Status at Discharge Cognitive/behavioral status at discharge: oriented Functional status at discharge: independent ambulation Overall status at discharge: patient is back to baseline Time Spent with Patient Time spent: Greater than 30 minutes Exam Vital Signs (past 8 hours): - 04/06/25 08:15 Oxygen Delivery Method Room Air Oxygen Delivery Method Room Air Oxygen Flow Rate 0 Narrative Exam Narrative: Seen in the day of discharge. No acute distress. Breathing comfortably, with normal effort. Flat abdomen. No leg edema. Walking the halls with normal gait. Objective Imaging CT scan - head: Radiologist's impression: No acute intracranial pathology. Labs 04/06/25 08:15 04/06/25 09:05 Labs: Laboratory Results - last 24 hr 04/06/25 04/06/25 08:15 09:05 WBC 13.3 H D RBC 4.19 Hgb 12.2 Hct 35.7 L MCV 85.2 MCH 29.0 MCHC 34.1 RDW 13.7 Plt Count 66 L Neut % (Auto) 84.2 H Lymph % (Auto) 10.6 L [place] % (Auto) 5.0 Eos % (Auto) 0.0 L Baso % (Auto) 0.2 Neut # (Auto) 66521 H Lymph # (Auto) 1400 [place] # (Auto) 700 Eos # (Auto) 0 Baso # (Auto) 0 Sodium 139 Potassium 4.0 Chloride 110 H Carbon Dioxide 18 L BUN 22 H Creatinine 1.01 Estimated GFR 59 L BUN/Creatinine Ratio 21.8 Glucose 133 H Calcium 9.3 PFSH Medical History Chronic diarrhea Elevated blood pressure reading without diagnosis of hypertension Microalbuminuria DM type 2 with diabetic dyslipidemia Right rotator cuff tear Elevated serum creatinine History of pulmonary embolism Personal history of DVT (deep vein thrombosis) Closed left ankle fracture Cholelithiasis Primary osteoarthritis involving multiple joints Age-related osteoporosis without current pathological fracture Mixed hyperlipidemia Fractures Gastric reflux Patient denies significant medical history Surgical History Anesthesia Tibial plateau fracture, left Tibia/fibula fracture History of bilateral breast reduction surgery History of appendectomy History of total abdominal hysterectomy and bilateral salpingo-oophorectomy Family History Father Diabetes mellitus History of heart disease Hypertension Social History household members: family Smoking Status: Never smoker Discharge Assessment & Plan Assessment and Plan Assessment: 1. 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 Plan of Treatment: Decadron 40 mg tomorrow and then prednisone 50 mg a day on April 08. She will continue this dose until follow up with Dr. Tee of Hematology and then anticipate a slow taper. Discharge Plan Discharge Plan Patient Disposition: Home Provider Discharge Comment: Stable for discharge. We will follow up with Dr. Tee of Oncology Hematology at [facility] within the next 2 weeks. Discharge orders & Medications Prescriptions: New dexamethasone 6 mg tablet 40 mg PO DAILY 1 Days Qty: 7 0RF prednisone 50 mg tablet 50 mg PO DAILY Qty: 20 0RF Rx Instructions: Start on 04/08 Continued loperamide 2 mg capsule 2 mg PO DAILY Qty: 90 0RF tirzepatide 10 mg/0.5 mL pen injector 10 mg SUBCUT QWEEK Qty: 2 11RF calcium-vitamin D3-vitamin K 650 mg-12.5 mcg-40 mcg tablet,chewable 1 tab PO DAILY rosuvastatin 10 mg tablet 10 mg PO DAILY Qty: 90 3RF ciprofloxacin HCl [Cipro] 500 mg tablet 500 mg PO BID Qty: 20 0RF Discontinued celecoxib 100 mg capsule 100 mg PO BID Qty: 180 3RF Medication counseling provided by Pharmacist: No Follow up/Referrals: Luis Ramachandran MD [Primary Care Provider, Internal Medicine] Discharge Health Status Multidrug resistant organism: No MDRO Diet/Activity/Treatments Diet: Regular Activity: Avoid heights or risk of trauma for the next week. Visit Report/Discharge Packet Instructions: DI for Immune Thrombocytopenic [place] Stand Alone Forms: Patient Portal/API Discharge Data Primary Care Provider: Luis Ramachandran V Quality VTE Deep Vein Thrombosis/Pulmonary Embolism Present on Admission: No
== END 2025-04-06 10:42 | disposition home or self-care (01) | DRG 813 ==
LOC: ED 14:56 → AC 18:04 → ICU 04-05 03:30
PROVIDERS: Hospitalist; Admitting Provider Family Medicine; Emergency Provider Emergency Medicine; PCP Internal Medicine; Referring Provider Emergency Medicine; Visit Provider Family Medicine
DX: D69.3 Immune thrombocytopenic purpura (principal); E78.5 Hyperlipidemia, unspecified; K52.9 Noninfective gastroenteritis and colitis, unspecified; E11.9 Type 2 diabetes mellitus without complications; Z87.440 Personal history of urinary (tract) infections; Z86.718 Personal history of other venous thrombosis and embolism; Z86.711 Personal history of pulmonary embolism; Z79.01 Long term (current) use of anticoagulants; Z79.85 Long-term (current) use of injectable non-insulin antidiabetic drugs
CPT/HCPCS: 36415; 70450; 80048; 80053; 81003; 81015; 83605; 83690; 83735; 84443; 85025; 85610; 85730; 86850; 86900; 86901; 87040; 87086; 96365; 96366; 99284; J0696; J1100; J1459

== ENCOUNTER → 2025-04-09 12:47 | Outpatient (CLI) | payer MEDICARE, OTHER, SELFPAY ==
[2025-04-05 04:36] VITALS: BMI 23.6
[2025-04-09 15:23] LABS: Add Manual Diff / Slide Review NO; Hematocrit 34.2 % (36-46); Hemoglobin 12.2 g/dL (12.0-16.0); Lymphocytes Absolute Auto 2000 /uL (1100-4500); Mean Corpuscular HGB Conc 35.8 % (30-36); Mean Corpuscular Hemoglobin 29.8 PG (26-34); Mean Corpuscular Volume 83.2 fL (80-100); Platelet Count 308 X10^3/uL (150-400)
== END ==
PROVIDERS: PCP Internal Medicine; Referring Provider Internal Medicine; Visit Provider Internal Medicine
DX: D69.3 Immune thrombocytopenic purpura (principal)
CPT/HCPCS: 36415; 85025

== ENCOUNTER → 2025-04-13 06:52 | Outpatient (CLI) | payer MEDICARE, OTHER, SELFPAY ==
[2025-04-05 04:36] VITALS: BMI 23.6
[2025-04-13 07:38] LABS: Add Manual Diff / Slide Review NO; Hematocrit 32.5 % (36-46); Hemoglobin 11.2 g/dL (12.0-16.0); Lymphocytes Absolute Auto 4100 /uL (1100-4500); Mean Corpuscular HGB Conc 34.7 % (30-36); Mean Corpuscular Hemoglobin 29.2 PG (26-34); Mean Corpuscular Volume 84.3 fL (80-100); Platelet Count 447 X10^3/uL (150-400)
== END ==
PROVIDERS: PCP Internal Medicine; Referring Provider Internal Medicine Hematology & Oncology; Visit Provider Internal Medicine Hematology & Oncology
DX: D69.3 Immune thrombocytopenic purpura (principal)
CPT/HCPCS: 36415; 85025

== ENCOUNTER → 2025-04-16 07:35 | Outpatient (CLI) | payer MEDICARE, OTHER, SELFPAY ==
[2025-04-05 04:36] VITALS: BMI 23.6
[2025-04-16 09:00] LABS: Add Manual Diff / Slide Review NO; Hematocrit 31.2 % (36-46); Hemoglobin 11.0 g/dL (12.0-16.0); Lymphocytes Absolute Auto 5200 /uL (1100-4500); Mean Corpuscular HGB Conc 35.4 % (30-36); Mean Corpuscular Hemoglobin 30.2 PG (26-34); Mean Corpuscular Volume 85.3 fL (80-100); Platelet Count 450 X10^3/uL (150-400)
== END ==
PROVIDERS: PCP Internal Medicine; Referring Provider Internal Medicine Hematology & Oncology; Visit Provider Internal Medicine Hematology & Oncology
DX: D69.3 Immune thrombocytopenic purpura (principal)
CPT/HCPCS: 36415; 85025

== ENCOUNTER → 2025-04-19 13:06 | Outpatient (CLI) | payer MEDICARE, OTHER, SELFPAY ==
[2025-04-05 04:36] VITALS: BMI 23.6
[2025-04-19 13:49] LABS: Add Manual Diff / Slide Review NO; Hematocrit 33.3 % (36-46); Hemoglobin 11.8 g/dL (12.0-16.0); Lymphocytes Absolute Auto 1600 /uL (1100-4500); Mean Corpuscular HGB Conc 35.4 % (30-36); Mean Corpuscular Hemoglobin 30.6 PG (26-34); Mean Corpuscular Volume 86.4 fL (80-100); Platelet Count 432 X10^3/uL (150-400)
== END ==
PROVIDERS: PCP Internal Medicine; Referring Provider Internal Medicine Hematology & Oncology; Visit Provider Internal Medicine Hematology & Oncology
DX: D69.3 Immune thrombocytopenic purpura (principal)
CPT/HCPCS: 36415; 85025

== ENCOUNTER → 2025-05-02 13:59 | Outpatient (CLI) | payer MEDICARE, OTHER, SELFPAY ==
[2025-04-05 04:36] VITALS: BMI 23.6
[2025-05-02 14:26] LABS: Add Manual Diff / Slide Review NO; Hematocrit 34.1 % (36-46); Hemoglobin 12.1 g/dL (12.0-16.0); Lymphocytes Absolute Auto 2100 /uL (1100-4500); Mean Corpuscular HGB Conc 35.4 % (30-36); Mean Corpuscular Hemoglobin 30.8 PG (26-34); Mean Corpuscular Volume 87.0 fL (80-100); Platelet Count 292 X10^3/uL (150-400)
== END ==
PROVIDERS: PCP Internal Medicine; Referring Provider Internal Medicine Hematology & Oncology; Visit Provider Internal Medicine Hematology & Oncology
DX: D69.3 Immune thrombocytopenic purpura (principal)
CPT/HCPCS: 36415; 85025

== ENCOUNTER → 2025-05-16 11:05 | Outpatient (CLI) | payer MEDICARE, OTHER, SELFPAY ==
[2025-04-05 04:36] VITALS: BMI 23.6
[2025-05-16 12:10] LABS: Add Manual Diff / Slide Review NO; Hematocrit 36.8 % (36-46); Hemoglobin 12.7 g/dL (12.0-16.0); Lymphocytes Absolute Auto 2500 /uL (1100-4500); Mean Corpuscular HGB Conc 34.4 % (30-36); Mean Corpuscular Hemoglobin 30.4 PG (26-34); Mean Corpuscular Volume 88.3 fL (80-100); Platelet Count 401 X10^3/uL (150-400)
== END ==
PROVIDERS: PCP Internal Medicine; Referring Provider Internal Medicine Hematology & Oncology; Visit Provider Internal Medicine Hematology & Oncology
DX: D69.3 Immune thrombocytopenic purpura (principal)
CPT/HCPCS: 36415; 85025

== ENCOUNTER → 2025-06-12 09:02 | Outpatient (CLI) | payer MEDICARE, OTHER, SELFPAY ==
[2025-04-05 04:36] VITALS: BMI 23.6
[2025-06-12 09:30] LABS: Appearance Urine UA CLOUDY; Bilirubin Urine UA NEGATIVE (NEGATIVE); Color Urine UA YELLOW; Glucose Urine UA NEGATIVE (Negative); Ketones Urine UA NEGATIVE (NEGATIVE); Leukocyte Esterase Urine UA 3+ (NEGATIVE); Nitrite Urine UA NEGATIVE (Negative); Occult Blood Urine UA 2+ (Negative); Protein Urine UA NEGATIVE (Negative); Specific Gravity Urine UA 1.020 (1.000-1.035); Urobilinogen Urine UA 1.0 E.U./dL (0.2)
[2025-06-12 09:42] LABS: pH Urine UA 5.5 (4.5-8.0)
[2025-06-12 09:54] LABS: Culture Indicated Urine Specimen Cultured
== END ==
PROVIDERS: PCP Internal Medicine; Referring Provider Internal Medicine; Visit Provider Internal Medicine
DX: R30.0 Dysuria (principal)
CPT/HCPCS: 81001; 87077; 87086; 87186